=== PATIENT | female | born 1980 | race Caucasian/White ===

== ENCOUNTER 2019-11-07 18:39 | Inpatient (IN) | payer MEDICAID, SELFPAY ==
[~2019-11-07] VITALS: Ht 165.1 cm; Wt 74.1 kg
[2019-11-07] MEDS ORDERED: VENTAER INH (18:50)
[2019-11-07 20:00] LABS: HEMATOCRIT 24.9 % (36.0-47.0); HEMOGLOBIN 8.2 g/dl (12.0-15.5); MEAN CORPUSCULAR HGB CONC 32.9 g/dl (32.0-36.5); PLATELET COUNT, AUTOMATED 129 10^3/uL (150-450); RED BLOOD COUNT 3.41 10^6/uL (4.00-5.40); WHITE BLOOD COUNT 18.9 10^3/uL (4.0-10.0)
[2019-11-07 20:15] LABS: ALBUMIN 1.5 GM/DL (3.2-5.2); ALT/SGPT 30 U/L (12-78); BILIRUBIN,TOTAL 1.3 MG/DL (0.2-1.0); BLOOD UREA NITROGEN 19 MG/DL (7-18); CALCIUM LEVEL 7.5 MG/DL (8.5-10.1); CARBON DIOXIDE LEVEL 27 MEQ/L (21-32); CHLORIDE LEVEL 90 MEQ/L (98-107); CREATININE FOR GFR 0.85 MG/DL (0.55-1.30); GLOMERULAR FILTRATION RATE > 60.0 (>58); GLUCOSE, FASTING 119 MG/DL (70-100); POTASSIUM SERUM 3.1 MEQ/L (3.5-5.1); SODIUM LEVEL 127 MEQ/L (136-145); TOTAL PROTEIN 6.8 GM/DL (6.4-8.2)
[2019-11-07] MEDS ORDERED: IBUP200C28 PO (20:30)
[2019-11-07] MEDS ORDERED: ISOVUE-370 76% 100ML VIAL As Ordered ONE (20:45)
[2019-11-07 20:48] LABS: INR 1.34; PROTHROMBIN TIME 16.3 SECONDS (11.8-14.0)
[2019-11-07 20:49] LABS: PARTIAL THROMBOPLASTIN TIME 43.4 SECONDS (25.0-38.4)
[2019-11-07 20:53] LABS: BILIRUBIN,DIRECT 0.8 MG/DL (0.0-0.2); LIPASE 45 U/L (73-393)
[2019-11-07 20:55] LABS: ATYPICAL LYMPH 5 % (0-5); LYMPHOCYTES 6 % (16-44); METAMYELOCYTES 1 % (0-0); NEUTROPHILS 68 % (28-66)
[2019-11-07 20:56] LABS: ANISOCYTOSIS 1+; MICROCYTOSIS 1+; PLATELET ESTIMATE DECREASED (NORMAL); POIKILOCYTOSIS 1+; POLYCHROMASIA 1+
--- NOTE | 2019-11-07 21:21 | REPVR ---
PROCEDURE INFORMATION: Exam: US Duplex Lower Extremity Veins, Bilateral Exam date and time: 11/07/19 (8:58pm) Age: 39 years old Clinical indication: Bilateral leg swelling TECHNIQUE: Imaging protocol: Real-time duplex ultrasound of the extremities with 2-D scanlon scale, color Doppler flow and spectral waveform analysis with image documentation. Complete examination focused on the bilateral lower extremity veins. COMPARISON: No relevant prior studies available FINDINGS: Right deep veins: Unremarkable. The common femoral, femoral, proximal profunda femoral, popliteal and calf veins are patent without thrombus. Normal Doppler waveforms. Normal compressibility and/or augmentation response. Right superficial veins: Saphenofemoral junction is patent without thrombus. Left deep veins: Unremarkable. The common femoral, femoral, proximal profunda femoral, popliteal and calf veins are patent without thrombus. Normal Doppler waveforms. Normal compressibility and/or augmentation response. Left superficial veins: Saphenofemoral junction is patent without thrombus. Soft tissues: Unremarkable. IMPRESSION: No evidence of deep vein thrombosis. (both legs are examined) Electronically signed by: Laverne Hughes On 11/07/2019 21:21:27 PM
--- NOTE | 2019-11-07 21:53 | REPVR ---
PROCEDURE INFORMATION: Exam: CT Abdomen and Pelvis with Contrast Exam date and time: 11/07/19 (9:19pm) Age: 39 years old Clinical indication: SOB, tachycardia TECHNIQUE: Imaging protocol: Computed tomography of the abdomen and pelvis with intravenous contrast. Radiation optimization: All CT scans at this facility use at least one of these dose optimization techniques: automated exposure control; mA and/or kV adjustment per patient size (includes targeted exams where dose is matched to clinical indication); or iterative reconstruction. Contrast material: Isovue 370 Contrast volume: 100 ml Contrast route: IV COMPARISON: No relevant prior studies available FINDINGS: Lower lung bates: Bibasilar interstitial lung disease. Multiple round parenchymal lesions at each lung base, many cystic/cavitary in nature. Liver: Normal. No solid mass. Gallbladder and bile ducts: Normal. No calcified stones. No ductal dilatation. Pancreas: Normal. No ductal dilatation. Spleen: Splenomegaly. Adrenals: Normal. No mass. Kidneys and ureters: Normal. No hydronephrosis. Stomach and bowel: Unremarkable. No bowel obstruction. No mucosal thickening. Appendix: No evidence of appendicitis. Intraperitoneal space: Unremarkable. No free air. No significant fluid collection. Vasculature: Unremarkable. No abdominal aortic aneurysm. Lymph nodes: Unremarkable. No enlarged lymph nodes. Bladder: Distended urinary bladder. No stones nor mass. Reproductive: Unremarkable as visualized. Bones/joints: Unremarkable. No acute fracture. Soft tissues: Unremarkable. IMPRESSION: Bibasilar interstitial lung disease. Multiple round parenchymal lesions at each lung base, many cystic/cavitary in nature. Diagnostic considerations include: septic emboli; cavitary pneumonia; lung abscesses; cavitary metastatic disease; atypical infection (eg, fungal disease); sarcoidosis. No acute bowel pathology. No hydronephrosis. Splenomegaly. Electronically signed by: Laverne Hughes On 11/07/2019 21:53:19 PM
--- NOTE | 2019-11-07 22:19 | REPVR ---
PROCEDURE INFORMATION: Exam: CT Angiography Chest With Contrast Exam date and time: 11/07/2019 9:19 PM Age: 39 years old Clinical indication: Shortness of breath; Additional info: SOB, tachycardia TECHNIQUE: Imaging protocol: Computed tomographic angiography of the chest with intravenous contrast. 3D rendering: MIP and/or 3D reconstructed images were created by the technologist. Radiation optimization: All CT scans at this facility use at least one of these dose optimization techniques: automated exposure control; mA and/or kV adjustment per patient size (includes targeted exams where dose is matched to clinical indication); or iterative reconstruction. Contrast material: ISOVUE 370; Contrast volume: 100 ml; Contrast route: IV; COMPARISON: No relevant prior studies available. FINDINGS: There is satisfactory opacification of the pulmonary arterial system. There is a near occlusive filling defect within a subsegmental branch of the pulmonary arterial system of the left lower lobe (image number 131). There is a nonocclusive filling defect within a subsegmental branch of the pulmonary arterial system of the right lower lobe. Findings are consistent with bilateral pulmonary embolic disease. Clot burden is considered small. Innumerable thick-walled cavitary lesions are identified throughout all lobes of the lungs. The largest in the right lower lobe measures up to 20 x 17 mm. The largest in the left lower lobe measures up to 22 by 16 mm. Largest confluent area of airspace consolidation with cavitary component in the right upper lobe measures up to 28 x 23 mm. Largest confluent area of airspace consolidation with cavitary component in the left upper lobe measures up to 17 x 14 mm. Findings are likely consistent with infectious etiology, including septic emboli. No large pleural effusion. Mediastinal structures are grossly normal. No thoracic lymphadenopathy. IMPRESSION: Near occlusive pulmonary embolic disease within subsegmental branches of the left lower lobe. Nonocclusive pulmonary embolic disease within subsegmental branches of the right lower lobe. Findings are consistent with bilateral pulmonary embolic disease. Clot burden is considered small. Extensive areas of airspace consolidation with cavitary lesions within all lobes of the lungs. Findings are likely consistent with inflammatory process including septic emboli or necrotizing pneumonia. Follow-up to resolution is recommended. If this fails to resolve after medical therapy, bronchoscopy is recommended.. Electronically signed by: Pj Vergara On 11/07/2019 22:18:29 PM
[2019-11-07] MEDS ORDERED: PIPERACILLIN/TAZOBACTAM SOD 3.375 GM in D5W MINI-BAG PLUS 50 ML IV ONE (22:45)
[2019-11-07] MEDS ORDERED: POTASSIUM CHLORIDE 10 MEQ SR TABLET PO ONE (23:00)
--- NOTE | 2019-11-07 23:11 | HPEPDOC ---
[facility] Medical History & Physical Date of Admission November 07, 2019 Date of Service: November 07, 2019 Attending Physician: RAMU WAGONER MD History and Physical CHIEF COMPLAINT: Shortness of breath and generalized weakness HISTORY OF PRESENT ILLNESS: Stephanie is a 39-year-old female with PMHx of asthma who was brought to the ED by her father and sister with the chief complaints of shortness of breath and worsening generalized pain and weakness. Approximately five and a half weeks ago she fell about 10 feet from a ladder while outdoors working on property around her home, making initial contact with the ground via her feet and legs. Soon thereafter, she began to experience pruritus of her legs. Over the last 3-4 weeks, she's experienced progressively worsening shortness of breath, systemic pains and weakness. Her symptoms have worsened to the point that she was "overloading on Motrin and Tylenol" at home. At this time, she specifically endorses decreased supervisor payroll strength, a decreased ability to ambulate, and diffuse pain that is most prominent in her legs and neck. She also reports also a three day period within this last month of symptoms where she unintentionally "gained 50 pounds in three days." Her activity level has significantly decreased over the past few days to the point that she is no longer ambulating under her own power and is instead scooching around on her hands and rear end. Even when she was ambulating, she had balance and stability issues with no falls. She says she simply "let [herself] go" over the past month. In the ED, she was found to be septic (leukocytosis and bandemia, tachycardic, and febrile) with initial lactic acid 2.4 and CRP 27; also with hypokalemia (sK 3.1), corrected sNa 127, elevated AST 81 and Alk phos 231, direct hyperbilirubi nemia, microcytic anemia, and protein gap (tPro 6.8, Albumin 1.5). Chest CTA showed bilateral pulmonary embolic disease with a small clot burden; as well as consolidation with cavitary lesions of all lung lobes thought to be consistent with inflammatory process, potentially septic emboli or necrotizing pneumonia. Two initial blood cultures were drawn, and she received 1 dose of Zosyn and 40 mEq of KCl. She was subsequently admitted under the care of the hospitalist service with scheduled Zosyn and vancomycin, heparin gtt, and IVF ordered. While still in the ED, her peripheral IV became dislodged and a peripheral was unable to be obtained by multiple staff. Dr. Amezcua of general surgery was called in to place a central line so as she could continue with her IV ABx and heparin gtt. She then was ultimately switched over to ICU status. She verbally confirms her CODE STATUS is full code. PAST MEDICAL HISTORY: Asthma PAST SURGICAL HISTORY: Bilateral bunionectomies SOCIAL HISTORY: Lives with her 15-year-old daughter in [place]. 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 She currently smokes cigarettes and has done so for the past 11 years, averaging one pack per day. She denies current or former alcohol use. She also denies current or former illicit drug use including IV drugs. FAMILY HISTORY: Mother: Hypertension Children: One child, a 15-year-old daughter who is healthy. ALLERGIES: Please see below. REVIEW OF SYSTEMS: CONSTITUTIONAL: Endorses "50 pound weight loss"in the last few weeks that occurred over "3 days." Endorses fever and chills. HEENT: Denies eye pain or visual disturbances, ear pain or auditory disturbances, rhinorrhea, congestion, dysphagia, odynophagia CARDIOVASCULAR: Denies chest pain, chest pressure, or palpitations RESPIRATORY: Endorses progressively worsening shortness of breath for the past few weeks with admitted increased work of breathing. Denies cough or pleuritic chest pain GASTROINTESTINAL: Denies abdominal pain, nausea, or vomiting GENITOURINARY: States she is no longer menstruating and has not had a period since she was 33 years old - - denies currently taking OCPs or previous hysterec edel. Denies dysuria or hematuria SKIN: Endorses bilateral lower extremity pruritus with worsening overall condition and breakdown with wounds MUSCULOSKELETAL: Endorses progressively worsening pain that is most acute in her legs and neck NEUROLOGICAL: Endorses bilateral lower extremity weakness and numbness to the point that she has been on unable to ambulate the past few days HEMATOLOGIC/LYMPHATIC: Endorses swelling of bilateral lower extremities with a past month HOME MEDICATIONS: Please see below. PHYSICAL EXAMINATION: VITAL SIGNS: Temperature 102.7, pulse 1:30, respiratory rate 18, blood pressure 101/56, pulse oximetry 99% on room air. GENERAL APPEARANCE: female in moderate distress with significant lower extremity swelling and wounds. Tearful. Alert and oriented 3. HEENT: Cephalic, atraumatic. PERRLA. Anicteric, noninjected sclera. [place] and dry mucous membranes with no pharyngeal erythema or exudate. No cervical lymphadenopathy appreciated. CARDIOVASCULAR: Tachycardic with regular rhythm. Pansystolic murmur auscultated throughout the precordium with radiation to carotids. No rubs or gallops appreciated. 2+ radial pulses. LUNGS: Diffuse moderate rhoncherous breath sounds bilaterally with mild inspiratory crackles in the bases bilaterally. Symmetric chest expansion. Speaking full sentences. Breathing room air. ABDOMEN: Tatoo over abdomen encircling umbilicus. Soft, nontender, nondistended with no guarding or rigidity. Normoactive bowel sounds present all 4 quadrants. MUSCULOSKELETAL: 5/5 muscle strength b/l LEs EXTREMITIES: Bilateral lower extremity and pedal pitting edema with extensive erythema that is more apparent distally, and what appears to be petechiae proximally over the knees and thighs. There is scaly chronic skin changes and breakdown bilaterally with an approximately 6-7cm diameter ulcer over the right lateral lower leg and an approximately 5-6cm diameter ulcer over the left lateral leg. There is also about a 5cm diameter area of skin overlying the left lateral thigh that it appears to be on its way to ulcerating with surrounding induration. There is also bilateral hand swelling with erythema. NEUROLOGICAL: Awake, alert and oriented 3. No focal neurological deficits appreciated. Non-dysarthric speech. Responded appropriate to questions and commands. PSYCHIATRIC: Anxious mood, tearful, and embarrassed at times. Affect appears ap propriate. LABORATORY DATA: Please see below. IMAGING: Duplex bilateral lower extremity venous ultrasound, 11/07/19: Impression no evidence of deep vein thrombosis (both legs are examined). *CT angiography chest with contrast, 11/07/19: Impression Near occlusive pulmonary embolic disease within subsegmental branches of the left lower lobe. Nonocclusive pulmonary embolic disease within subsegmental branches of the right lower lobe. Findings are consistent with bilateral pulmonary embolic disease. Clot burden is considered small. Extensive areas of airspace consolidation with cavitary lesions within all lobes of the lungs. Findings are likely consistent with inflammatory process including septic emboli or necrotizing pneumonia. Follow-up to resolution is recommended. If this fails to resolve after medical therapy, bronchoscopy is recommended. CT abdomen and pelvis with contrast, 11/07/19: Impression Bibasilar interstitial lung disease. Multiple round parenchymal lesions at each lung base, many cystic/cavitary in nature. Diagnostic considerations include: septic emboli; cavitary pneumonia; lung abscesses; cavitary metastatic disease; atypical infection (eg, fungal disease); sarcoidosis. No acute bowel pathology. No hydronephrosis. Splenomegaly. Duplex bilateral upper extremity venous ultrasound, 11/07/19: Impression no evidence of deep vein thrombosis in the upper extremities bilaterally. MICROBIOLOGY: Please see below. ASSESSMENT & PLAN: This is a 39-year-old female with no significant past medical history other than asthma who presented to the emergency department with sepsis (fever, tachycardic, inc WBC w/ bandemia) with impressive chest CTA showing bilateral pulmonary embolic disease and consolidations with cavitary lesions in all lung lobes. #Sepsis likely 2/2 significant septic emboli burden -WBC 18 w/ bandemia + tachycardia + fever, with inc CRP 27 and initial lactic acid 2.4, f/u of 2.2 -likely source thought to be initially through LE skin wounds causing bacteremia and systemic septic emboli -NEWS2 Score = 4 points; associated with low/medium risk for critical care intervention with monitoring q1h -Chest CTA showed b/l pulmonary embolic disease with a small clot burden and airspace consolidation with cavitary lesions in all lung lobes -Two initial BCx pending -Heparin gtt running for pulmonary emboli despite small clot burden; IV ABx, Zosyn and Vanc, running w/ Vanc for likely bacteremia introduced via skin wounds; IVF running -toxicology screen ordered in setting of profound septic emboli burden -TTE ordered to assess for possible endocarditis -General surgery (Dr. Amezcua) consulted to assess b/l LE wounds - - appreciate their input and recommendations -Infectious disease (Dr. Maria Del Carmen Dorantes) consulted in setting of significant septic emboli burden with presumed bacteremia - - appreciate their input and recommendations #Microcytic normochromic anemia -Hgb 8.2, MCV 73, MCHC 32.9 -no previous hospital records to Hgb baseline -Fe studies ordered to assess for deficiency, ACD, etc. -f/u CBC #Electrolyte abnormalities -Hypokalemia: initial sK 3.1; received 40mEq KCl in ED -Hyponatremia: initial sNa 127 with calculated sNa 127 (accounting for sGlu 119); sOsm ordered to assess if this is pseudohyponatremia -False hypocalcemia: sCa 7.5 with corrected sCa 9.7 (accounting for sAlbumin 1.5) -f/u metabolic panels #Protein gap -sAlbumin decreased at 1.5 with nl tPro 6.8 -Gamma Gap calculation 5.3 = elevated; potentially elevated 2/2 viral infection(s), blood cell dyscrasias (i.e. multiple myeloma, monoclonal gammopathy), or acute HIV infections -f/u metabolic panels #History of Asthma, unspecified type -c/o increased sob over the past month -home prn albuterol rescue inhaler continued #DVT prophylaxis: on heparin gtt Disposition: Ultimately admitted to ICU with greater than two midnight stays predicted; pending specialists evaluations as well. Vital Signs Vital Signs Date Time Temp Pulse Resp B/P (MAP) Pulse Ox O2 Delivery O2 Flow Rate FiO2 11/07/19 21:09 108 97 11/07/19 21:00 142/66 (91) 11/07/19 20:24 18 Room Air 11/07/19 19:38 100.5 Laboratory Data Labs 24H Laboratory Tests 2 11/07/19 19:32: Neutrophils (%) (Auto) , Nucleated Red Blood Cells % (auto) 0.0, Neutrophils 68H, Band Neutrophils 20H, Lymphocytes (Manual) 6L, Metamyelocytes 1H, Atypical Lymphocytes 5, Polychromasia 1+, Poikilocytosis 1+, Anisocytosis 1+, Microcytosis 1+, Platelet Estimate DECREASED, Anion Gap 10, Glomerular Filtration Rate > 60.0, Calcium Level 7.5L, Total Bilirubin 1.3H, Direct Bilirubin 0.8H, Aspartate Amino Transf (AST/SGOT) 81H, Alanine Aminotransferase (ALT/SGPT) 30, Alkaline Phosphatase 231H, C-Reactive Protein, Quantitative 27.20H, Total Protein 6.8, Albumin 1.5L, Albumin/Globulin Ratio 0.28L, Lipase 45L, Coronavirus (COVID-19)(PCR) NEGATIVE 11/07/19 19:36: Prothrombin Time 16.3H, Prothromb Time International Ratio 1.34, Activated Partial Thromboplast Time 43.4H, Lactic Acid Level 2.4*H CBC/BMP Laboratory Tests 11/07/19 19:32 Microbiology Microbiology 11/07/19 Blood Culture, Received Pending 11/07/19 Blood Culture, Received Pending Home Medications Scheduled PRN Albuterol Sulfate (Ventolin Hfa) 18 Gm Hfa.aer.ad, 2 PUFF INH Q6H PRN for SHORTNESS OF BREATH Ibuprofen (Ibuprofen) 200 Mg Capsule, 600 MG PO QID PRN for PAIN Allergies Coded Allergies: No Known Allergies (Unverified , 11/07/19) GME ATTESTATION My faculty preceptor for this patient encounter was physically present during the encounter and was fully available. All aspects of the patient interview, examination, medical decision making process, and medical care plan development were reviewed and approved by the faculty preceptor. The faculty preceptor is aware and concurs with the plan as stated in the body of this note and will attest to such by his/her cosignature. ATTENDING NOTE I independently examined and assessed the patient and discussed the plan and agree with the resident's documentation above. Briefly, Ms. Vieyra is a 39yo W who is admitted with severe sepsis likely 2/2 soft tissue infection that occured after injury after falling from a tree with involvement of a chainsaw with cuts that were not tended. Her exam findings and workup thus far shows likely bacteremia (pending cultures) with evidence of pulm septic emboli, loud pansystolic murmur heart throughout precordium with likely endorcaditis and evidence of PEs. At this time, we have pancultured her and started her on empiric vanc/zosyn and heparin gtt while awaiting cultures, TTE nad pending ID consult. A-FIB/CHADSVASC A-FIB History Current/History of A-Fib/PAF?: No Current PO Anticoag Therapy: No LORI CHAVARRIA D.O. November 07, 2019 23:11 RAMU WAGONER MD November 08, 2019 19:32
--- NOTE | 2019-11-07 23:12 | REPVR ---
PROCEDURE INFORMATION: Exam: US Duplex Upper Extremity Veins Exam date and time: 11/07/2019 11:02 PM Age: 39 years old Clinical indication: Swelling (edema) of limb; Upper extremity, bilateral; Additional info: Upper extremity swelling TECHNIQUE: Imaging protocol: Real-time Duplex ultrasound of the Upper Extremities with 2-D scanlon scale, color Doppler flow and spectral waveform analysis with image documentation. Complete exam focused on the bilateral upper extremity veins. COMPARISON: No relevant prior studies available. FINDINGS: Right deep veins: Unremarkable. Axillary and brachial veins are patent throughout without thrombus. Normal Doppler waveforms. Normal compressibility and/or augmentation response. Visualized internal jugular and subclavian veins are patent. Right superficial veins: Limited visualization of the cephalic and basilic veins with no definite evidence of thrombus. Left deep veins: Unremarkable. Axillary and brachial veins are patent throughout without thrombus. Normal Doppler waveforms. Normal compressibility and/or augmentation response. Visualized internal jugular and subclavian veins are patent. Left superficial veins: Limited visualization of the cephalic and basilic veins with no definite evidence of thrombus. Soft tissues: Unremarkable. IMPRESSION: No evidence of deep vein thrombosis in the upper extremities bilaterally. Electronically signed by: Pj Vergara On 11/07/2019 23:11:24 PM
[2019-11-07] MEDS ORDERED: ACETAMINOPHEN TAB 650MG DOSE (2X325MG) PO ONE (23:30)
[2019-11-08] VITALS (29 sets, daily range): BP systolic 86–127; BP diastolic 51–68
[2019-11-08] MEDS ORDERED: HEPARIN SOD (PORCINE) 5000UNITS/ML VIAL (J1644 PER 1000UNITS) IV ONE
[2019-11-08] MEDS ORDERED: ALBUTEROL 90 MCG/ACT 8GM HFA INHALER INH PRN (00:45)
[2019-11-08] MEDS ORDERED: VANCOMYCIN HCL 750 MG, VIAL MATE ADAPTER 1 EACH in D5W 250 ML IV ONE ×2 (03:00→04:00)
--- NOTE | 2019-11-08 04:14 | PHACANCOPD ---
PHARMACY VANCOMYCIN DOSING Pt Demographics Demographics Patient Age:39 , Weight:74.200 , Gender: female Adjusted Body Weight Date: 11/08/19, Adjusted Body Weight: [63.9] Kg Events Past 24 Hours Events Past 24 Hours: YES: Fever Vancomycin Vancomycin indication: febrile neutropenia-empiric tx Vancomycin Target Ranges: 15-20 mcg/ml Vancomycin Load Y/N: Yes Load Dose Date Time Vancomycin Load Dose: 1.5gm Date: 11/07 Time: 0400 Vancomycin Dose Date: 11/08/19. Current Vancomycin Dose: [1gm q12h] Intermittent Dosing?: No Labs Micro Microbiology 11/07/19 Blood Culture, Received Pending 11/07/19 Blood Culture, Received Pending Creatinine Clearance Date:11/08/19. Creatinine Clearance: [87.8].calculatedf Assessment and Plan Maintaining Current Dose?: Yes Reason for dose change: No Dose Change Pharmacist Note Pharmacist Note Date: 11/08/19. Pharmacist note:[id number] admitted for empiric tx of febrile neutropenia. NKDA,ht:65",wt:74.2kg(abw=63.9kg)SCR=0.85,Calculated CRCL=87.8.MRSA PCR screen pending,1.5 GM Vancomycin LD ordered for today@3-4:00, then will begin continuing regimen of 1 gm IV [id number]@12 noon. First trough is scheduled for 11/08@1100(prior to the 4th dose).Patient is also receiving Pip/Tazo 3.375 G M IV [id number]. Will continue to follow [facility] November 08, 2019 04:14
[2019-11-08] MEDS ORDERED: LIDOCAINE 1% MDV 20ML VIAL As Ordered ONE (04:33)
[2019-11-08] MEDS ORDERED: PIPERACILLIN/TAZOBACTAM SOD 3.375 GM in D5W MINI-BAG PLUS 50 ML IV SCH (05:00)
[2019-11-08] MEDS: NS 1,000 ML IV SCH ×3 (05:06→20:30)
[2019-11-08] MEDS: HEPARIN DRIP 25,000 UNITS in IV 1 EA IV SCH (05:11)
[2019-11-08 05:58] LABS: HEMATOCRIT 23.7 % (36.0-47.0); HEMOGLOBIN 7.6 g/dl (12.0-15.5); MEAN CORPUSCULAR HEMOGLOBIN 23.5 pg (27.0-33.0); MEAN CORPUSCULAR HGB CONC 32.1 g/dl (32.0-36.5); MEAN CORPUSCULAR VOLUME 73.4 fl (80.0-96.0); PLATELET COUNT, AUTOMATED 110 10^3/uL (150-450); RED BLOOD COUNT 3.23 10^6/uL (4.00-5.40); WHITE BLOOD COUNT 16.4 10^3/uL (4.0-10.0)
[2019-11-08 06:26] LABS: ALBUMIN 1.3 GM/DL (3.2-5.2); ALT/SGPT 24 U/L (12-78); BILIRUBIN,TOTAL 1.4 MG/DL (0.2-1.0); BLOOD UREA NITROGEN 14 MG/DL (7-18); CALCIUM LEVEL 7.5 MG/DL (8.5-10.1); CARBON DIOXIDE LEVEL 31 MEQ/L (21-32); CHLORIDE LEVEL 95 MEQ/L (98-107); CREATININE FOR GFR 0.67 MG/DL (0.55-1.30); FERRITIN 453 NG/ML (8-252); GLOMERULAR FILTRATION RATE > 60.0 (>58); GLUCOSE, FASTING 132 MG/DL (70-100); IRON (FE) 18 UG/DL (50-170); PERCENT SATURATION 9.4 % (13.2-45.0); POTASSIUM SERUM 2.8 MEQ/L (3.5-5.1); SODIUM LEVEL 132 MEQ/L (136-145); TOTAL IRON BINDING CAPACITY 191 UG/DL (250-450); TOTAL PROTEIN 6.3 GM/DL (6.4-8.2)
[2019-11-08] MEDS: KCL 20MEQ IN 100ML SWI (KRUN) 20 MEQ in IV 1 EA IV SCH ×8 (06:30→21:36)
[2019-11-08] MEDS: PIPERACILLIN/TAZOBACTAM SOD 3.375 GM in D5W MINI-BAG PLUS 50 ML IV SCH ×2 (07:28→14:18)
[2019-11-08] MEDS: ACETAMINOPHEN TAB 650MG DOSE (2X325MG) PO PRN ×2 (07:37→21:36)
--- NOTE | 2019-11-08 08:12 | REP ---
PORTABLE CHEST X-RAY: Single view. HISTORY: Status post line placement. Comparison is made with chest CT study done earlier. FINDINGS: A right internal jugular central venous line is seen in place with it is tip in the expected location of the superior vena cava. Heart is not enlarged. Multiple bilateral pulmonary nodular opacities are seen as observed on the current CT study of the chest. There is no evidence of pneumothorax or hydrothorax. IMPRESSION: Right IJ line in good position. No pneumothorax seen. Electronically Signed by Marc Llamas MD 11/08/2019 08:43 A
--- NOTE | 2019-11-08 08:35 | RO ---
DATE OF PROCEDURE: 11/07/2019 PREOPERATIVE DIAGNOSIS: IV access needed for anticoagulation and fluids (patient septic in intensive care unit). POSTOPERATIVE DIAGNOSIS: IV access needed for anticoagulation and fluids (patient septic in intensive care unit). PROCEDURE: Central line placement. SURGEON: Dr. Efe Amezcua ASSOCIATE PROFESSOR COMPUTER SCIENCE: ANESTHESIA: Local lidocaine. BRIEF PROCEDURE SUMMARY: The patient was brought to the intensive care unit. She was prepped and draped in the usual sterile fashion for a left subclavian. After several sticks, I was not able to obtain good flashback from the subclavian vein. Prior to this, I had checked on the right internal jugular (IJ) area and it was very distended and thus I felt that she was possibly not as fluid under resuscitated as previously thought. Thus, I went to the left subclavian area. After a few sticks though, and not being successful at this, a right IJ access was obtained without difficulty. Finder needle was placed into the vein and the wire was threaded without difficulty. The central line was sutured in at 17 cm and all ports were aspirated and flushed without difficulty. A postoperative chest x-ray revealed the central line in good position and no evidence of pneumothorax. The patient continued with her ICU care and dressing changes, etc.
[2019-11-08 10:23] LABS: BLOOD UREA NITROGEN 14 MG/DL (7-18); CALCIUM LEVEL 7.4 MG/DL (8.5-10.1); CARBON DIOXIDE LEVEL 33 MEQ/L (21-32); CHLORIDE LEVEL 96 MEQ/L (98-107); CREATININE FOR GFR 0.63 MG/DL (0.55-1.30); GLOMERULAR FILTRATION RATE > 60.0 (>58); GLUCOSE, FASTING 109 MG/DL (70-100); POTASSIUM SERUM 3.5 MEQ/L (3.5-5.1); SODIUM LEVEL 131 MEQ/L (136-145)
--- NOTE | 2019-11-08 10:59 | IPNPDOC ---
Text Note Date of Service The patient was seen on 11/08/19. NOTE Subjective: Patient continues to have generalized weakness, cough. Her fever in the morning resolved. Patient denied chest pain, palpitations, diarrhea or dysuria Objective: VITAL SIGNS: Please see below. GENERAL: In moderate distress, tearful HEENT: NCAT, anicteric sclera, MARGARITA NECK: supple, no JVD CARDIOVASCULAR EXAMINATION: NS1S2, regular rate/rhythm RESPIRATORY EXAMINATION: Diminished lung sounds, bilateral rhonchi at the bases ABDOMINAL EXAMINATION: Distended, nontender EXTREMITIES: Erythematous skin over both feet, multiple petechia of lower extremities, +1 pitting edema of lower extremities with scaly chronic skin changes, extensive ulceration around 5- 6 cm both distal legs. Erythema of both hands NEUROLOGICAL EXAMINATION: AAO x 3, no motor/sensory deficits Patient is 39 years old female with past medical history of asthma presented to the hospital with sepsis. Patient was found to have bilateral pulmonary emboli, multifocal pneumonia with cavitary lesions. Blood culture came back positive with gram-positive cocci in clusters on 11/08/19. Sepsis Most likely secondary to skin infection which spread hematogenously to the lungs 2 sets of Blood culture positive for gram-positive cocci in clusters 11/08/19 Continue vancomycin and Zosyn Continue IV fluid Repeat blood culture There is concern for endocarditis given gram-positive cocci bacteremia. We will proceed with TTE, I will check sedimentation rate and rheumatoid factor Also there is concern for DIC given multiple petechia, anemia and declining bloodless count with prolonged PT, PTT, INR Check DIC panel Appreciate/agree with ID consult Bilateral PE Most likely due to sepsis superimposed with prolonged immobilization No history of blood clots before Continue heparin drip Bilateral pneumonia Most likely patient developed septic emboli secondary to bilateral legs cellulitis and ulcers CTA showed extensive areas of airspace consolidation with cavitary lesions within all lobes of the lungs. Findings are likely consistent with inflammatory process including septic emboli or necrotizing pneumonia. Continue broad-spectrum antibiotics Incentive spirometry Skin rash/petechia Most likely secondary to sepsis due to gram-positive cocci in clusters, most likely staph aureus septicemia Will check DIC panel Differential diagnosis also includes TEN, SJS, TSS. Continue monitoring CBC Hypokalemia Replaced BMP every 4 hours VS,Fishbone, I+O VS, Fishbone, I+O Laboratory Tests 5/13/20 19:32 11/08/19 05:40 Vital Signs Date Time Temp Pulse Resp B/P (MAP) Pulse Ox O2 Delivery O2 Flow Rate FiO2 11/08/19 08:00 98.3 95 22 92/52 (65) 94 Room Air I&O- Last 24 Hours up to 6 AM 11/08/19 05:59 Intake Total 0 ml Output Total 0 ml Balance 0 ml JETT KENT DO November 08, 2019 10:58
[2019-11-08] MEDS ORDERED: SODIUM CHLORIDE 0.9% 1000ML IV ONE (11:15)
[2019-11-08] MEDS: VANCOMYCIN HCL 1,000 MG, VIAL MATE ADAPTER 1 EACH in D5W 250 ML IV SCH (11:49)
[2019-11-08 11:51] LABS: HEMATOCRIT 23.7 % (36.0-47.0); HEMOGLOBIN 7.6 g/dl (12.0-15.5); MEAN CORPUSCULAR HEMOGLOBIN 23.8 pg (27.0-33.0); MEAN CORPUSCULAR HGB CONC 32.1 g/dl (32.0-36.5); MEAN CORPUSCULAR VOLUME 74.1 fl (80.0-96.0); WHITE BLOOD COUNT 13.8 10^3/uL (4.0-10.0)
[2019-11-08 12:02] LABS: INR 1.36; PROTHROMBIN TIME 16.5 SECONDS (11.8-14.0)
[2019-11-08 12:03] LABS: FIBRINOGEN 539 MG/DL (221-452); PARTIAL THROMBOPLASTIN TIME 46.6 SECONDS (25.0-38.4)
[2019-11-08 12:07] LABS: PLATELET COUNT, AUTOMATED 94 10^3/uL (150-450)
[2019-11-08] MEDS: HEPARIN SOD (PORCINE) 5000UNITS/ML VIAL (J1644 PER 1000UNITS) IV PRN ×2 (12:18→18:47)
[2019-11-08 12:38] LABS: D-DIMER QUANT > 4000 ng/ml (<500)
[2019-11-08 12:41] LABS: ANISOCYTOSIS 1+; LYMPHOCYTES 5 % (16-44); MICROCYTOSIS 2+; MONOCYTES 8 % (0-5); NEUTROPHILS 86 % (28-66); PLATELET ESTIMATE DECREASED (NORMAL)
[2019-11-08] MEDS ORDERED: SODIUM CHLORIDE 0.9% INJ 10 ML SYR IV PRN (14:30)
[2019-11-08 14:50] LABS: BLOOD UREA NITROGEN 12 MG/DL (7-18); CALCIUM LEVEL 7.4 MG/DL (8.5-10.1); CARBON DIOXIDE LEVEL 31 MEQ/L (21-32); CHLORIDE LEVEL 98 MEQ/L (98-107); CREATININE FOR GFR 0.58 MG/DL (0.55-1.30); GLOMERULAR FILTRATION RATE > 60.0 (>58); GLUCOSE, FASTING 114 MG/DL (70-100); POTASSIUM SERUM 3.4 MEQ/L (3.5-5.1); SODIUM LEVEL 133 MEQ/L (136-145)
--- NOTE | 2019-11-08 17:06 | CR ---
DATE: 11/08/2019 Patient is a 39-year-old white female who presents to the emergency room with shortness of breath and essentially was diagnosed with septic emboli and deep venous thromboses (DVTs) this secondary to bilateral traumatic injuries to the lower extremities with ulcers that had developed. In any case, she presents with the sepsis, leukocytosis, tachycardia, febrile with lactic acidosis. Past medical history is history for asthma, history of anxiety, history of bilateral bunionectomies. Physical exam reveals a 39-year-old who looks stated age. HEENT is unremarkable. Neck: Supple without adenopathy. Lungs are clear although decreased bilaterally. Heart is regular, tachycardiac. Abdomen is softly distended, nontender. Extremities reveal these petechial rashes throughout both distally in the hands. She has significant edema with 2+ pitting edema. She has 2-3+ pitting edema of her lower extremities with some dry ulcers of bilateral lower extremities that are punched out lesions, evidence of some venous stasis changes of bilateral lower extremities. A CT angio of the chest showed pulmonary emboli concerning for possible septic emboli or possible septic emboli. There are multiple lesions within all lobes of the lungs. IMPRESSION/PLAN: Patient has evidence of cellulitis of the lower extremities bilaterally with edema, some necrotic ulcers, although no true necrotizing fasciitis appreciated. These are mostly dry and should improve with some local dressing changes, and I anticipate just simple wet-to-dry should help debride back these lesions relatively quickly. With antibiotic treatment I anticipate cellulitis should improve. The edema, cellulitis in the upper hands etc. should also improve with heparinization and antibiotic treatment as well. Otherwise, additional recommendations can be obtained from teleconference with the wound clinic. Additional treatment with things such as Santyl, etc. may not be unreasonable. Pulse lavage is also a reasonable option, but given that it is reasonable to start with wet-to-dry twice a day normal saline and see how she does over the next 24 hours. If this really does not debride as well, then being more aggressive with the treatment is reasonable.
[2019-11-08 18:21] LABS: HEMATOCRIT 23.9 % (36.0-47.0); HEMOGLOBIN 7.9 g/dl (12.0-15.5); MEAN CORPUSCULAR HEMOGLOBIN 24.5 pg (27.0-33.0); MEAN CORPUSCULAR HGB CONC 33.1 g/dl (32.0-36.5); PLATELET COUNT, AUTOMATED 117 10^3/uL (150-450); RED BLOOD COUNT 3.23 10^6/uL (4.00-5.40); WHITE BLOOD COUNT 16.1 10^3/uL (4.0-10.0)
[2019-11-08] MEDS: CLINDAMYCIN 900 MG in IV 1 EA IV SCH (18:27)
[2019-11-08 18:40] LABS: BLOOD UREA NITROGEN 12 MG/DL (7-18); CARBON DIOXIDE LEVEL 26 MEQ/L (21-32); CHLORIDE LEVEL 97 MEQ/L (98-107); CREATININE FOR GFR 0.62 MG/DL (0.55-1.30); GLOMERULAR FILTRATION RATE > 60.0 (>58); GLUCOSE, FASTING 143 MG/DL (70-100); SODIUM LEVEL 129 MEQ/L (136-145)
[2019-11-08 18:48] LABS: ATYPICAL LYMPH 1 % (0-5); LYMPHOCYTES 11 % (16-44); MONOCYTES 1 % (0-5); MYELOCYTES 2 % (0-0); NEUTROPHILS 66 % (28-66)
[2019-11-08 18:49] LABS: ANISOCYTOSIS 1+; PLATELET ESTIMATE NORMAL (NORMAL)
[2019-11-08 18:50] LABS: MICROCYTOSIS 1+; POLYCHROMASIA 1+; TEAR DROP CELLS 1+
[2019-11-08 18:52] LABS: ERYTHROCYTE SEDIMENTATION RATE 93 mm/hr (0-20)
--- NOTE | 2019-11-08 18:55 | CR.PDOC ---
General Date of Consultation: November 08, 2019 Consultation HPI: Patient is a 39-year-old white female who presented to the Emergency Department with dyspnea and was diagnosed with septic emboli presumed to be secondary to bilateral lower extremity wound in various stages of healing. She was noted to have sepsis, leukocytosis, tachycardia, and a fever. Blood culture showed gram + cocci in clusters and a large tricuspid vegatation was elucidated upon imaging. Dermatology was consulted due to lower extremity wounds and swelling and non-blanching erythema on the hands and feet. PMHx: asthma, history of anxiety, history of bilateral bunionectomies. Exam: HEENT: NC/AT Neck: no JVD appreciated RESP: labored breathing noted SKIN: non-blanching erythema and petechiae noted on the hands and feet with edema and some areas of confluent erythema, chronic stasis changes of the lower extremities appreciated. Lower leg with bilateral wounds in various stages of healing with a large wound on the right lower leg and left lower leg. No overlying gunmetal gonzalez appearance or undermined edging appreciated. Healed wound noted demonstrating healing pattern c/w additional dermal wound. No sporotrichoid LAD given history of falling from tree. NAILS: distal splinter hemorrhages just proximal to the hyponychium IMPRESSION/PLAN: #Ulcers, lower extremity Potentially trauma complicated by edema and poor nutritional status but various stages of healing does raise concern for pyoderma gangrenosum. Much lower concern, but will perform punch bx and assess for neutrophilic dermatosis in the absence of bacteria. Agree with plan for General Surgery for wet to dry dressings to debride wounds and assist with healing. Leg elevation is likely showing us an improved edema pictures compared to baseline. Will perform punch bx and wound culture at this time. #Vasculitis Likely secondary to sepsis causing increased permeability and inflammation within the capillaries. Biopsy performed to r/o septic emboli in setting of splinter hemorrhages and large tricuspid vegetation noted. Will follow up punch bx and wound culture. Dr. Stacey Rios Staff Card [facility] Vital Signs/I&O Vital Signs Date Time Temp Pulse Resp B/P (MAP) Pulse Ox O2 Delivery O2 Flow Rate FiO2 11/08/19 14:00 99 26 125/65 (85) 97 Room Air 11/08/19 12:00 98.0 I&O- Last 24 Hours up to 6 AM 11/08/19 06:00 Intake Total 385 ml Output Total 0 ml Balance 385 ml Laboratory Data Labs 24H Laboratory Tests 2 11/07/19 19:32: Neutrophils (%) (Auto) , Nucleated Red Blood Cells % (auto) 0.0, Neutrophils 68H, Band Neutrophils 20H, Lymphocytes (Manual) 6L, Metamyelocytes 1H, Atypical Lymphocytes 5, Polychromasia 1+, Poikilocytosis 1+, Anisocytosis 1+, Microcytosis 1+, Platelet Estimate DECREASED, Anion Gap 10, Glomerular Filtration Rate > 60.0, Calcium Level 7.5L, Total Bilirubin 1.3H, Direct Bi lirubin 0.8H, Aspartate Amino Transf (AST/SGOT) 81H, Alanine Aminotransferase (ALT/SGPT) 30, Alkaline Phosphatase 231H, C-Reactive Protein, Quantitative 27.20H, Total Protein 6.8, Albumin 1.5L, Albumin/Globulin Ratio 0.28L, Lipase 45L, Coronavirus (COVID-19)(PCR) NEGATIVE 11/07/19 19:36: Prothrombin Time 16.3H, Prothromb Time International Ratio 1.34, Activated Partial Thromboplast Time 43.4H, Lactic Acid Level 2.4*H 11/08/19 00:18: Activated Partial Thromboplast Time 43.3H 11/08/19 00:42: Lactic Acid Followup at 4 Hours 2.2*H 11/08/19 03:45: Methicillin-Resist S.aureus DNA PCR DETECTEDA 11/08/19 05:40: Nucleated Red Blood Cells % (auto) 0.0, Anion Gap 6L, Glomerular Filtration Rate > 60.0, Osmolality 272L, Lactic Acid Level 1.5, Calcium Level 7.5L, Magnesium Level 2.0, Iron Level 18L, Total Iron Binding Capacity 191L, Transferrin % Saturation 9.4L, Ferritin 453H, Total Bilirubin 1.4H, Aspartate Amino Transf (AST/SGOT) 67H, Alanine Aminotransferase (ALT/SGPT) 24, Alkaline Phosphatase 193H, Total Protein 6.3L, Albumin 1.3L, Albumin/Globulin Ratio 0.26L, Procalcitonin 1.47 11/08/19 09:40: Anion Gap 2L, Glomerular Filtration Rate > 60.0, Calcium Level 7.4L 11/08/19 11:39: Nucleated Red Blood Cells % (auto) 0.0, Neutrophils (%) (Auto) , Neutrophils 86H, Band Neutrophils 1, Lymphocytes (Manual) 5L, Monocytes (Manual) 8H, Anisocytosis 1+, Microcytosis 2+, Platelet Estimate DECREASED, Immature Platelet Fraction 4.7, Prothrombin Time 16.5H, Prothromb Time International Ratio 1.36, Activated Partial Thromboplast Time 46.6H, Fibrinogen 539H, D-Dimer, Quantitative > 4000H, Rheumatoid Factor < 10.0 11/08/19 14:12: Anion Gap 4L, Glomerular Filtration Rate > 60.0, Calcium Level 7.4L 11/08/19 18:01: Neutrophils (%) (Auto) , Nucleated Red Blood Cells % (auto) 0.0, Activated Partial Thromboplast Time 45.6H CBC/BMP Laboratory Tests 11/07/19 19:32 11/08/19 05:40 11/08/19 09:40 11/08/19 11:39 11/08/19 14:12 11/08/19 18:01 Microbiology Microbiology 11/08/19 Wound Culture, Received Pending 11/08/19 Blood Culture, Received Pending 11/07/19 Blood Culture - Preliminary, Resulted 11/07/19 Blood Culture - Preliminary, Resulted Allergies Coded Allergies: No Known Allergies (Unverified , 11/07/19) Home Medications Scheduled PRN Albuterol Sulfate (Ventolin Hfa) 18 Gm Hfa.aer.ad, 2 PUFF INH Q6H PRN for SHORTNESS OF BREATH, (Reported) Ibuprofen (Ibuprofen) 200 Mg Capsule, 600 MG PO QID PRN for PAIN, (Reported) STACEY RIOS MD November 08, 2019 18:55
[2019-11-08 21:47] LABS: ALBUMIN 1.2 GM/DL (3.2-5.2); BLOOD UREA NITROGEN 10 MG/DL (7-18); CALCIUM LEVEL 6.9 MG/DL (8.5-10.1); CARBON DIOXIDE LEVEL 26 MEQ/L (21-32); CHLORIDE LEVEL 96 MEQ/L (98-107); CREATININE FOR GFR 0.66 MG/DL (0.55-1.30); GLOMERULAR FILTRATION RATE > 60.0 (>58); GLUCOSE, FASTING 99 MG/DL (70-100); MAGNESIUM LEVEL 1.7 MG/DL (1.8-2.4); POTASSIUM SERUM 3.5 MEQ/L (3.5-5.1); SODIUM LEVEL 130 MEQ/L (136-145)
[2019-11-08] MEDS: SODIUM CHLORIDE 0.9% INJ 10 ML SYR IV SCH (22:04)
--- NOTE | 2019-11-08 22:06 | ECHO ---
DATE OF PROCEDURE: 11/08/2019 DATE OF : 1980 REASON FOR THE STUDY: Sepsis. PATIENT LOCATION: Intensive care unit/coronary care unit (ICU/CCU). 2D MEASUREMENTS: IVS: 0.9 cm LV: 4.5 cm LVPW: 0.9 cm LA: 3.4 cm Aorta: 2.8 cm IVC: 2.1 cm DOPPLER MEASUREMENTS: Peak velocity across the aortic valve: 1.5 meters per second Peak velocity across the LVOT: 1.1 meters per second Mitral E: 0.9, Mitral A: 0.6 with a ratio of 1.4. Maximum tricuspid valve velocity: 2.8 meters per second 2D COMMENTS: 1. Normal left ventricular size, wall thickness, and normal global left ventricular systolic function. The estimated left ventricular systolic ejection fraction is 60-65%. 2. Normal left atrium. The right atrium, and the right ventricle appeared to be minimally enlarged. The right ventricular free wall was dasha. 3. The atrial septum appeared to be normal without evidence of defect or shunt. 4. Normal aortic root. 5. Trace pericardial effusion noted, no evidence of cardiac tamponade. Probably right pleural effusion also noted. 6. Normal aortic valve and mitral valve. There is a large echogenic structure noted on the tricuspid valve, moving back and forth in the right ventricle and the right atrium. Sizes in different views were: 1.7 x 1.25 cm, 2.4 x 0.9 cm, 2.8 x 1.6 cm. The pulmonic valve appeared to be normal. The proximal pulmonary artery branches were not well visualized. 7. The inferior vena cava was mildly enlarged, central venous pressure might be elevated. DOPPLER : It detects trace mitral regurgitation and moderately severe tricuspid regurgitation that is eccentric. The calculated pulmonary artery systolic pressure varies between 30-40 mmHg but might be higher. Assessment of the left ventricular diastolic function was normal. IMPRESSION: 1. Normal global left ventricular systolic and diastolic function. 2. Trace mitral regurgitation. 3. Significantly large vegetations noted on the tricuspid valve as described above. 4. Moderately severe tricuspid regurgitation with mild pulmonary hypertension. Calculated pulmonary artery systolic pressure might be underestimated. 5. The inferior vena cava was mildly enlarged. 6. Case was discussed earlier this afternoon with infectious disease (ID), and a transesophageal echocardiogram was recommended.
--- NOTE | 2019-11-08 22:12 | ECGEPIP ---
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
[2019-11-08] MEDS ORDERED: MAG SULF 1GM/100ML (MAG RUN) 1 GM in IV 1 EA IV ONE (22:30)
[2019-11-09] VITALS (20 sets, daily range): BP systolic 120–147; BP diastolic 59–89
[2019-11-09] MEDS: HEPARIN DRIP 25,000 UNITS in IV 1 EA IV SCH (00:13)
[2019-11-09] MEDS: VANCOMYCIN HCL 1,000 MG, VIAL MATE ADAPTER 1 EACH in D5W 250 ML IV SCH (00:14)
[2019-11-09 01:08] LABS: BLOOD UREA NITROGEN 10 MG/DL (7-18); CALCIUM LEVEL 6.9 MG/DL (8.5-10.1); CARBON DIOXIDE LEVEL 26 MEQ/L (21-32); CHLORIDE LEVEL 96 MEQ/L (98-107); CREATININE FOR GFR 0.58 MG/DL (0.55-1.30); GLOMERULAR FILTRATION RATE > 60.0 (>58); GLUCOSE, FASTING 119 MG/DL (70-100); POTASSIUM SERUM 3.2 MEQ/L (3.5-5.1); SODIUM LEVEL 130 MEQ/L (136-145)
[2019-11-09] MEDS: KCL 20MEQ IN 100ML SWI (KRUN) 20 MEQ in IV 1 EA IV SCH ×4 (01:43→02:34)
[2019-11-09] MEDS: CLINDAMYCIN 900 MG in IV 1 EA IV SCH ×2 (03:12→10:00)
[2019-11-09 03:22] LABS: HEMATOCRIT 23.4 % (36.0-47.0); HEMOGLOBIN 7.6 g/dl (12.0-15.5); MEAN CORPUSCULAR HEMOGLOBIN 23.8 pg (27.0-33.0); MEAN CORPUSCULAR HGB CONC 32.5 g/dl (32.0-36.5); MEAN CORPUSCULAR VOLUME 73.1 fl (80.0-96.0); PLATELET COUNT, AUTOMATED 104 10^3/uL (150-450); WHITE BLOOD COUNT 20.5 10^3/uL (4.0-10.0)
[2019-11-09 03:46] LABS: EOSINOPHILS 1 % (0-3); LYMPHOCYTES 3 % (16-44); MONOCYTES 8 % (0-5); MYELOCYTES 1 % (0-0); NEUTROPHILS 87 % (28-66)
[2019-11-09 03:47] LABS: PLATELET ESTIMATE DECREASED (NORMAL)
[2019-11-09 03:48] LABS: ANISOCYTOSIS 1+; MICROCYTOSIS 1+; TOXIC VACUOLATION 1+
[2019-11-09] MEDS: NS 1,000 ML IV SCH ×2 (04:06→11:54)
--- NOTE | 2019-11-09 04:43 | CR ---
DATE OF CONSULTATION: 11/08/2019 INFECTIOUS DISEASE CONSULTATION: Asked to consult by hospitalist for evaluation of gram-positive bacteremia with septic emboli to the lungs and cavitary lesions. 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 She was up on a tree, trying to make a home for some cats who were getting kittens. As soon as she landed on her feet, she developed severe pruritus of both lower extremities. She then developed severe itching and started scratching her lower extremity. Over the past 5 weeks, she has had increasing shortness of breath with exertion, generalized body aches, worsening lesions on her legs. She had not been able to take care of herself or get out of bed due to severe leg pain, neck pain, back pain. The last time she made a meal for her daughter was spaashaetti 2 weeks ago. She had some fever and chills initially when she fell from the tree about for a week, and then they resolved and then they recurred the past couple weeks. She stated she gained a lot of weight in the past week from swelling in her hands and feet even though she had not been eating but just drinking. She was not able to walk and, therefore, was moving around on her hands and feet. In the emergency room, she was septic. She had lactic acidosis. She was hypotensive. CT chest with angiogram was suggestive of pulmonary emboli and cavitary pneumonias consistent with multiple septic emboli. She received intravenous (IV) vancomycin and Zosyn. She has no previous history of methicillin-resistant Staphylococcus aureus (MRSA). Denies IV drug abuse. PAST MEDICAL HISTORY: Is significant for asthma, for which she takes an albuterol as needed. She does not have a primary care provider. She gets albuterol from her daughter's father, who is a traveling hospitalist and right now is in [place]. PAST SURGICAL HISTORY: Bilateral bunionectomies years ago. SOCIAL HISTORY: She stopped working at [employer] about a year ago and had some issues that she does not want to tell us. Her daughter is 15 years old, goes to school. She has a sister in [place], who is her health care proxy. She has been unemployed for over a year and currently just got Medicaid. She smokes a pack of cigarettes a day for the past 11 years. She denies alcohol or drug abuse. FAMILY HISTORY: Hypertension in her mother. REVIEW OF SYSTEMS: She aches all over. Has gained weight. Has had no appetite. Has only been drinking. She denies chest pain. She has shortness of breath with exertion and a dry, nonproductive cough. She denies abdominal pain, nausea, vomiting, or diarrhea. She is menopausal at the age of 33. ON PHYSICAL EXAM: Maximum temperature (Tmax) was 102.7 yesterday; today was 98. Pulse 80, respirations 26, blood pressure 93/53, oxygen saturation was 97%. Blood pressure was down to 89 at 5 a.m. Sick looking female, in moderate discomfort. Heart: Normal S1 and S2, tachycardiac, with a holosystolic ejection murmur heard at the left upper sternal border. Lungs: Crackles at the bases. No wheezes or rhonchi. Good air entry. Abdomen: Soft, nontender. No hepatosplenomegaly. Large tattoo on the abdomen. Back: No costovertebral angle (CVA) or lumbosacral tenderness. Musculoskeletal exam: No cervical or lumbosacral tenderness. There is no point tenderness along any of the vertebrae. Extremities: +1 pitting edema of both hands and feet with erythematous rash involving both hands and feet that is blanching, warm. Both extremities are swollen, but she has normal range of motion of the knees and the hips in spite of pain. Skin: Has multiple necrotic lesions on the right calf, which is foul smelling, measuring about 8 x 4 x 5 cm, the left calf as well. The left upper thigh has a healed lesion, which is scarred over. There are other multiple blanching maculopapular rashes on her upper thigh. No lesions on the back, abdomen. Neck: Is supple. No jugular venous distention (JVD). No bruits. No adenopathy. Oropharynx is clear with no lesions. No thrush. Good dentition. Pupils equal and reactive, anicteric, with no conjunctival lesions. Blood cultures on 11/07/2019: Two sets are positive for gram-positive cocci in clusters. White count was 18.9 yesterday, today 13.8. Hemoglobin 7.6, hematocrit 23.7, platelets 94, 86% neutrophils, 5% lymphocytes, 8% monocytes. Sodium 133, potassium 3.4, chloride 98, bicarbonate 31, BUN 12, creatinine 0.58, glucose 114, calcium 7.4, procalcitonin 1.47. Rheumatoid factor less than 10. MRSA screen was positive, and COVID testing is negative. Vascular ultrasound upper and lower extremities: Both were negative. Chest CT showed multiple cavitary lesions measuring between 1.7 to 2.8 cm with thick-walled cavitations, extensive areas of airspace consolidation, consistent with septic emboli/necrotizing pneumonia. There was also nonocclusive pulmonary embolic disease. CT of the abdomen and pelvis showed no acute pathology in the abdomen. IMPRESSION: This is a 39-year-old female who presented with a 5-week history of illness that started after a fall from a tree, developed some skin lesions, following which she has developed progressive shortness of breath, generalized body aches, and sepsis. The patient was found to have a vegetation on her tricuspid valve measuring 2.4 cm with multiple septic emboli to the lung and cavitary lesions. She has severe tricuspid regurgitation. There is no evidence of vegetations on the left side of the heart, aortic or mitral valve at this point. Patient has been on IV vancomycin and Zosyn since admission. She has denied IV drug use adamantly to Dr. Rios and myself. She could have developed bacteremia from skin lesions from methicillin-resistant Staphylococcus aureus, following which she developed a vegetation on her tricuspid valve with septic emboli to the lungs. PLAN: 1. Continue with IV vancomycin 1 gram every 12 hours. Would discontinue IV Zosyn and start her on clindamycin 900 mg every 8 hours for toxin inhibition for the next 2-4 days. Consult with dermatology has been done. I did call Dr. Rios, who did a punch biopsy of her right foot and right calf area. Lesions are suggestive of vasculitis. The calf lesions could suggest pyoderma gangrenosum, although less likely in this situation. 2. Consult cardiology for severe tricuspid regurgitation and large vegetation. Patient would definitely need a transesophageal echocardiogram to rule out left-sided endocarditis. This could be done early next week. Repeat two sets of blood cultures and until negative. Thank you for consultation.
[2019-11-09] MEDS: SODIUM CHLORIDE 0.9% INJ 10 ML SYR IV SCH ×2 (05:32→13:19)
[2019-11-09 06:54] LABS: ALBUMIN 1.2 GM/DL (3.2-5.2); ALT/SGPT 29 U/L (12-78); BILIRUBIN,TOTAL 1.2 MG/DL (0.2-1.0); BLOOD UREA NITROGEN 9 MG/DL (7-18); CALCIUM LEVEL 6.7 MG/DL (8.5-10.1); CARBON DIOXIDE LEVEL 26 MEQ/L (21-32); CHLORIDE LEVEL 96 MEQ/L (98-107); CREATININE FOR GFR 0.45 MG/DL (0.55-1.30); GLOMERULAR FILTRATION RATE > 60.0 (>58); GLUCOSE, FASTING 107 MG/DL (70-100); MAGNESIUM LEVEL 1.9 MG/DL (1.8-2.4); POTASSIUM SERUM 3.4 MEQ/L (3.5-5.1); SODIUM LEVEL 130 MEQ/L (136-145); TOTAL PROTEIN 6.3 GM/DL (6.4-8.2)
[2019-11-09 10:56] LABS: HEPATITIS C VIRUS ABY INDEX 0.2 INDEX (<0.8); HIV 1&2 SCREEN CENTAUR NEGATIVE (NEGATIVE)
[2019-11-09] MEDS ORDERED: ENOXAPARIN 80MG/0.8ML SYRINGE (J1650 PER 10MG) SC SCH (11:00)
[2019-11-09 11:43] LABS: HEMOGLOBIN 7.3 g/dl (12.0-15.5); MEAN CORPUSCULAR HEMOGLOBIN 23.2 pg (27.0-33.0); MEAN CORPUSCULAR HGB CONC 31.7 g/dl (32.0-36.5); MEAN CORPUSCULAR VOLUME 73.2 fl (80.0-96.0); PLATELET COUNT, AUTOMATED 113 10^3/uL (150-450); RED BLOOD COUNT 3.14 10^6/uL (4.00-5.40); WHITE BLOOD COUNT 20.1 10^3/uL (4.0-10.0)
[2019-11-09] MEDS: ONDANSETRON 4MG/2ML VIAL IV PRN ×2 (11:51→15:48)
[2019-11-09 12:01] LABS: BLOOD UREA NITROGEN 9 MG/DL (7-18); CALCIUM LEVEL 7.1 MG/DL (8.5-10.1); CARBON DIOXIDE LEVEL 26 MEQ/L (21-32); CHLORIDE LEVEL 97 MEQ/L (98-107); CREATININE FOR GFR 0.46 MG/DL (0.55-1.30); GLOMERULAR FILTRATION RATE > 60.0 (>58); GLUCOSE, FASTING 106 MG/DL (70-100); POTASSIUM SERUM 3.3 MEQ/L (3.5-5.1); SODIUM LEVEL 131 MEQ/L (136-145); VANCOMYCIN LEVEL TROUGH 5.7 UG/ML (10.0-20.0)
--- NOTE | 2019-11-09 12:04 | IPNPDOC ---
Text Note Date of Service The patient was seen on 11/09/19. NOTE Subjective: Patient continues to have generalized weakness with increased rachana rtness of breath. Currently she is on 2 L via nasal cannula. Itchiness resolved. Patient adamantly denied any IV drug use. Objective: VITAL SIGNS: Please see below. GENERAL: In moderate distress, tearful HEENT: NCAT, anicteric sclera, MARGARITA NECK: supple, no JVD CARDIOVASCULAR EXAMINATION: NS1S2, regular rate/rhythm RESPIRATORY EXAMINATION: Diminished lung sounds, bilateral rhonchi at the bases ABDOMINAL EXAMINATION: Distended, nontender EXTREMITIES: Erythematous skin over both feet, multiple petechia of lower extremities, +1 pitting edema of lower extremities with scaly chronic skin changes, extensive wound stage 4 around 5- 6 cm both lateral side of distal legs. Erythema of both hands. Splinter nails hemorrhages NEUROLOGICAL EXAMINATION: AAO x 3, no motor/sensory deficits Patient is 39 years old female with past medical history of asthma presented to the hospital with sepsis. Patient was found to have bilateral pulmonary emboli, multifocal pneumonia with cavitary lesions. Blood culture came back positive with gram-positive cocci in clusters on 11/08/19. Sepsis Most likely secondary to skin infection which spread hematogenously to the lungs. 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 Also there is high possibility that its infectious emboli given large tricuspid valve vegetations. No history of blood clots before Continue therapeutic dose of Lovenox Bilateral pneumonia Most likely patient developed septic emboli secondary to bilateral legs cellulitis and ulcers. There is high concern for possible IV drug abuse CTA showed extensive areas of airspace consolidation with cavitary lesions within all lobes of the lungs. Findings are likely consistent with inflammatory process including septic emboli or necrotizing pneumonia. Continue broad-spectrum antibiotics Incentive spirometry Skin rash/petechia Most likely secondary to sepsis due to gram-positive cocci in clusters, most likely staph aureus septicemia Punch biopsy was done yesterday Stage IV legs wound I will talk to surgical team about possible repeated debridement Also that is high concern for osteomyelitis given stage IV extensive wound with of both legs Hypokalemia Replaced BMP every 4 hours VS,Fishbone, I+O VS, Fishbone, I+O Laboratory Tests 11/08/19 14:12 11/08/19 18:01 11/08/19 20:52 11/09/19 00:19 11/09/19 03:14 11/09/19 05:55 11/09/19 11:18 Vital Signs Date Time Temp Pulse Resp B/P (MAP) Pulse Ox O2 Delivery O2 Flow Rate FiO2 11/09/19 11:00 97 20 131/86 (101) Nasal Cannula 2.0 11/09/19 10:00 97 11/09/19 08:00 98.2 I&O- Last 24 Hours up to 6 AM 11/09/19 06:00 Intake Total 6016 ml Output Total 2300 ml Balance 3716 ml JETT KENT DO November 09, 2019 12:04
[2019-11-09 12:12] LABS: ANISOCYTOSIS 1+; LYMPHOCYTES 10 % (16-44); MICROCYTOSIS 1+; MONOCYTES 4 % (0-5); MYELOCYTES 1 % (0-0); NEUTROPHILS 78 % (28-66); PLATELET ESTIMATE DECREASED (NORMAL)
[2019-11-09 12:14] LABS: HYPOCHROMASIA 1+
[2019-11-09] MEDS ORDERED: VANCOMYCIN HCL 1,000 MG, VIAL MATE ADAPTER 1 EACH in D5W 250 ML IV SCH (13:00)
[2019-11-09] MEDS ORDERED: VANCOMYCIN HCL 500 MG in D5W MINI-BAG PLUS 100 ML IV ONE (14:00)
[2019-11-09] MEDS: ACETAMINOPHEN TAB 650MG DOSE (2X325MG) PO PRN (15:49)
--- NOTE | 2019-11-09 16:44 | DS.PDOC ---
Discharge Summary General Date of Admission November 07, 2019 at 23:46 Date of Discharge 11/09/19 Discharge Summary PROCEDURES PERFORMED DURING STAY: [None]. ADMITTING DIAGNOSES: Sepsis Acute Endocarditis Bilateral PE Skin rash/petechia Bilateral pneumonia Skin rash/petechia Stage IV legs wound Hypokalemia DISCHARGE DIAGNOSES: Sepsis Acute Endocarditis Bilateral PE Skin rash/petechia Bilateral pneumonia Skin rash/petechia Stage IV legs wound Hypokalemia COMPLICATIONS/CHIEF COMPLAINT: Bilateral Leg Ulcer, Pulmonary Emboli. 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 She was up on a tree, trying to make a home for some cats who were getting kittens. As soon as she landed on her feet, she developed severe pruritus of both lower extremities. She then developed severe itching and started scratching her lower extremity. Over the past 5 weeks, she has had increasing shortness of breath with exertion, generalized body aches, worsening lesions on her legs. She had not been able to take care of herself or get out of bed due to severe leg pain, neck pain, back pain. The last time she made a meal for her daughter was sebastian 2 weeks ago. She had some fever and chills initially when she fell from the tree about for a week, and then they resolved and then they recurred the past couple weeks. She stated she gained a lot of weight in the past week from swelling in her hands and feet even though she had not been eating but just drinking. She was not able to walk and, therefore, was moving around on her hands and feet. In the emergency room, she was septic. She had lactic acidosis. She was hypotensive. CT chest with angiogram was suggestive of pulmonary emboli and cavitary pneumonias consistent with multiple septic emboli. She received intravenous (IV) vancomycin and Zosyn. She has no previous history of methicillin-resistant Staphylococcus aureus (MRSA). Denies IV drug abuse. HOSPITAL COURSE: During hospital course the following issue addressed Sepsis Most likely secondary to skin infection which spread hematogenously to the lungs. However, there is concern for possible IV drug use Blood culture positive for staph aureus Continue vancomycin and clindamycin for toxin inhibition Continue IV fluid Repeat blood culture TTE positive for tricuspid vegetation, Sizes in different views were: 1.7 x 1.25 cm, 2.4 x 0.9 cm, 2.8 x 1.6 cm Acute Endocarditis Most likely secondary to staph aureus bacteremia Patient will need NAYELY and prolonged course of antibiotics Dr. Ragland recommended to transfer patient to cardiothoracic unit Bilateral PE Most likely due to sepsis superimposed with prolonged immobilization. Also there is high possibility that its infectious emboli given large tricuspid valve veg etations. No history of blood clots before Continue therapeutic dose of Lovenox Bilateral pneumonia Most likely patient developed septic emboli secondary to bilateral legs cellulitis and ulcers. There is high concern for possible IV drug abuse CTA showed extensive areas of airspace consolidation with cavitary lesions within all lobes of the lungs. Findings are likely consistent with inflammatory process including septic emboli or necrotizing pneumonia. Continue broad-spectrum antibiotics Incentive spirometry Skin rash/petechia Most likely secondary to sepsis due to gram-positive cocci in clusters, most likely staph aureus septicemia Punch biopsy was done yesterday Stage IV legs wound I will talk to surgical team about possible repeated debridement Also that is high concern for osteomyelitis given stage IV extensive wound with of both legs Hypokalemia Replaced BMP every 4 hours DISCHARGE MEDICATIONS: Please see below. ALLERGIES: Please see below. PHYSICAL EXAMINATION ON DISCHARGE: VITAL SIGNS: Please see below. GENERAL: In moderate distress, tearful HEENT: NCAT, anicteric sclera, MARGARITA NECK: supple, no JVD CARDIOVASCULAR EXAMINATION: NS1S2, regular rate/rhythm RESPIRATORY EXAMINATION: Diminished lung sounds, bilateral rhonchi at the bases ABDOMINAL EXAMINATION: Distended, nontender EXTREMITIES: Erythematous skin over both feet, multiple petechia of lower extremities, +1 pitting edema of lower extremities with scaly chronic skin changes, extensive wound stage 4 around 5- 6 cm both lateral side of distal legs. Erythema of both hands. Splinter nails hemorrhages NEUROLOGICAL EXAMINATION: AAO x 3, no motor/sensory deficits LABORATORY DATA: Please see below. IMAGING: [facility] NAME: VEENA EATON DATE OF : 1980 BUSINESS NUMBER: [id number] AGE: 39 SEX: F REPORT #: [id number] ROOM: ED TECHNOLOGIST: ANALISA DOCTOR: GERMAINE ACUNA DO Ordered for Date&Time: 11/07/192037 cc: [~ rep ct ivnm] Service Date&Time: 11/07/192118 This report is in Signed status. Interpretation performed by [facility]. Thank you for having your radiology procedures performed at [facility] RADIOLOGY REPORT Date&Time printed: [~ rep prt dt last] [~ rep prt tm last] Page [address] of [address] [address] RADIOLOGY REPORT This report is in Signed status. Interpretation performed by [facility]. Thank you for having your radiology procedures performed at [facility] RADIOLOGY REPORT Date&Time printed: [~ rep prt dt last] [~ rep prt tm last] Page 1 of 2 PROCEDURE INFORMATION: Exam: CT Angiography Chest With Contrast Exam date and time: 11/07/2019 9:19 PM Age: 39 years old Clinical indication: Shortness of breath; Additional info: SOB, tachycardia TECHNIQUE: Imaging protocol: Computed tomographic angiography of the chest with intravenous contrast. 3D rendering: MIP and/or 3D reconstructed images were created by the technologist. Radiation optimization: All CT scans at this facility use at least one of these dose optimization techniques: automated exposure control; mA and/or kV adjustment per patient size (includes targeted exams where dose is matched to clinical indication); or iterative reconstruction. Contrast material: ISOVUE 370; Contrast volume: 100 ml; Contrast route: IV; COMPARISON: No relevant prior studies available. FINDINGS: There is satisfactory opacification of the pulmonary arterial system. There is a near occlusive filling defect within a subsegmental branch of the pulmonary arterial system of the left lower lobe (image number 131). There is a nonocclusive filling defect within a subsegmental branch of the pulmonary arterial system of the right lower lobe. Findings are consistent with bilateral pulmonary embolic disease. Clot burden is considered small. Innumerable thick-walled cavitary lesions are identified throughout all lobes of the lungs. The largest in the right lower lobe measures up to 20 x 17 mm. The largest in the left lower lobe measures up to 22 by 16 mm. Largest confluent area of airspace consolidation with cavitary component in the right upper lobe measures up to 28 x 23 mm. Largest confluent area of airspace consolidation with cavitary component in the left upper lobe measures up to 17 x 14 mm. Findings are likely consistent with infectious etiology, including septic emboli. No large pleural effusion. Mediastinal structures are grossly normal. No thoracic lymphadenopathy. IMPRESSION: Near occlusive pulmonary embolic disease within subsegmental branches of the left lower lobe. Nonocclusive pulmonary embolic disease within subsegmental branches of the right lower lobe. Findings are consistent with bilateral pulmonary embolic disease. Clot burden is considered small. Extensive areas of airspace consolidation with cavitary lesions within all lobes of the lungs. Findings are likely consistent with inflammatory process including septic emboli or necrotizing pneumonia. Follow-up to resolution is recommended. If this fails to resolve after medical therapy, bronchoscopy is recommended.. Electronically signed by: Lalita Green On 11/07/2019 22:18:29 PM DD: LALITA GREEN MD 11/07/192118 DT: HOLLIE 11/07/192217 DS: NIHARIKA 11/07/192217 [~ rep ct labl] DATE OF PROCEDURE: 11/08/2019 DATE OF : 1980 REASON FOR THE STUDY: Sepsis. PATIENT LOCATION: Intensive care unit/coronary care unit (ICU/CCU). 2D MEASUREMENTS: IVS: 0.9 cm LV: 4.5 cm LVPW: 0.9 cm LA: 3.4 cm Aorta: 2.8 cm IVC: 2.1 cm DOPPLER MEASUREMENTS: Peak velocity across the aortic valve: 1.5 meters per second Peak velocity across the LVOT: 1.1 meters per second Mitral E: 0.9, Mitral A: 0.6 with a ratio of 1.4. Maximum tricuspid valve velocity: 2.8 meters per second 2D COMMENTS: 1. Normal left ventricular size, wall thickness, and normal global left ventricular systolic function. The estimated left ventricular systolic ejection fraction is 60-65%. 2. Normal left atrium. The right atrium, and the right ventricle appeared to be minimally enlarged. The right ventricular free wall was dasha. 3. The atrial septum appeared to be normal without evidence of defect or shunt. 4. Normal aortic root. 5. Trace pericardial effusion noted, no evidence of cardiac tamponade. Probably right pleural effusion also noted. 6. Normal aortic valve and mitral valve. There is a large echogenic structure noted on the tricuspid valve, moving back and forth in the right ventricle and the right atrium. Sizes in different views were: 1.7 x 1.25 cm, 2.4 x 0.9 cm, 2.8 x 1.6 cm. The pulmonic valve appeared to be normal. The proximal pulmonary artery branches were not well visualized. 7. The inferior vena cava was mildly enlarged, central venous pressure might be elevated. DOPPLER : It detects trace mitral regurgitation and moderately severe tricuspid regurgitation that is eccentric. The calculated pulmonary artery systolic pressure varies between 30-40 mmHg but might be higher. Assessment of the left ventricular diastolic function was normal. IMPRESSION: 1. Normal global left ventricular systolic and diastolic function. 2. Trace mitral regurgitation. 3. Significantly large vegetations noted on the tricuspid valve as described above. 4. Moderately severe tricuspid regurgitation with mild pulmonary hypertension. Calculated pulmonary artery systolic pressure might be underestimated. 5. The inferior vena cava was mildly enlarged. 6. Case was discussed earlier this afternoon with infectious disease (ID), and a transesophageal echocardiogram was recommended. DD: SIDRA RAGLAND MD 11/08/191931 DT: MODESTO 11/08/192147 DS: DS2: [~ rep ct labl] PROGNOSIS: Guarded ACTIVITY: [As tolerated]. DIET: Cardiac DISCHARGE PLAN: Transfer to [facility] DISPOSITION: 02 Xfer To Acute Hosp. DISCHARGE CONDITION: [Stable]. TIME SPENT ON DISCHARGE: Greater than 40 minutes. Vital Signs/I&Os Vital Signs Date Time Temp Pulse Resp B/P (MAP) Pulse Ox O2 Delivery O2 Flow Rate FiO2 11/09/19 15:00 105 28 141/78 (99) 96 Nasal Cannula 2.0 11/09/19 12:00 97.9 I&O- Last 24 Hours up to 6 AM 11/09/19 06:00 Intake Total 6016 ml Output Total 2300 ml Balance 3716 ml Laboratory Data Labs 24H Laboratory Tests 2 11/08/19 18:01: Neutrophils (%) (Auto) , Nucleated Red Blood Cells % (auto) 0.0, Neutrophils 66, Band Neutrophils 19H, Lymphocytes (Manual) 11L, Monocytes (Manual) 1, Myelocytes 2H, Atypical Lymphocytes 1, Polychromasia 1+, Anisocytosis 1+, Microcytosis 1+, Tear Drop Cells 1+, Platelet Estimate NORMAL, Erythrocyte Sedimentation Rate 93H, Activated Partial Thromboplast Time 45.6H, Anion Gap 6L, Glomerular Filtration Rate > 60.0, Calcium Level 7.0L, Hepatitis C Antibody Index 0.2, HIV Antigen/Antibody Combo Qual NEGATIVE 5/14/20 20:52: Anion Gap 8, Glomerular Filtration Rate > 60.0, Calcium Level 6.9L, Magnesium Level 1.7L, Albumin 1.2L 11/09/19 00:19: Activated Partial Thromboplast Time 71.6H, Anion Gap 8, Glomerular Filtration Rate > 60.0, Calcium Level 6.9L 11/09/19 03:14: Neutrophils (%) (Auto) , Nucleated Red Blood Cells % (auto) 0.0, Neutrophils 87H, Lymphocytes (Manual) 3L, Monocytes (Manual) 8H, Myelocytes 1H, Anisocytosis 1+, Microcytosis 1+, Platelet Estimate DECREASED, Eosinophils (Manual) 1, Toxic Vacuolation 1+ 11/09/19 05:55: Erythrocyte Sedimentation Rate > 140H, Activated Partial Thromboplast Time 65.8H, Anion Gap 8, Glomerular Filtration Rate > 60.0, Calcium Level 6.7L, Ma gnesium Level 1.9, Total Bilirubin 1.2H, Aspartate Amino Transf (AST/SGOT) 79H, Alanine Aminotransferase (ALT/SGPT) 29, Alkaline Phosphatase 214H, C-Reactive Protein, Quantitative 24.30H, Total Protein 6.3L, Albumin 1.2L, Albumin/Globulin Ratio 0.2L 11/09/19 11:18: Anion Gap 8, Glomerular Filtration Rate > 60.0, Calcium Level 7.1L, Neutrophils (%) (Auto) , Nucleated Red Blood Cells % (auto) 0.0, Neutrophils 78H, Band Neutrophils 7, Lymphocytes (Manual) 10L, Monocytes (Manual) 4, Myelocytes 1H, Hypochromasia 1+, Anisocytosis 1+, Microcytosis 1+, Platelet Estimate DECREASED, Vancomycin Level Trough 5.7L CBC/BMP Laboratory Tests 11/08/19 18:01 11/08/19 20:52 11/09/19 00:19 11/09/19 03:14 11/09/19 05:55 11/09/19 11:18 Microbiology Microbiology 11/09/19 Blood Culture, Received Pending 11/08/19 Wound Culture - Preliminary, Resulted Staphylococcus Aureus 11/08/19 Blood Culture - Preliminary, Resulted No growth after 24 hours . All specim... 11/07/19 Blood Culture - Preliminary, Resulted Staphylococcus Aureus 11/07/19 Blood Culture - Preliminary, Resulted Staphylococcus Aureus Discharge Medications Scheduled PRN Albuterol Sulfate (Ventolin Hfa) 18 Gm Hfa.aer.ad, 2 PUFF INH Q6H PRN for SHORTNESS OF BREATH, (Reported) Allergies Coded Allergies: No Known Allergies (Unverified , 11/07/19) JETT KENT DO November 09, 2019 16:44
--- NOTE | 2019-11-09 21:58 | IPN ---
DATE: 11/09/2019 Veena was seen this morning in the intensive care unit (ICU). She was complaining of increasing shortness of breath and, therefore, she had been placed on two liters nasal cannula due to hypoxia overnight. She has a mild nonproductive cough. She denies any pain in lower extremities except with dressing changes. She complains of generalized body ache, but mostly with movement, especially in the shoulders. She definitely is doing better than yesterday with movement. She was able to get out of bed to use the bedside commode to urinate. She denies any itching. Vital signs: Temperature is 97.9, pulse 114, respirations 24, oxygen saturation (O2 sat) 99% on 2 liters nasal cannula, down to 81% on room air this morning. Heart: Normal S1, S2, tachycardiac. Holosystolic ejection murmur heard 3/6 at the left upper sternal border and left lower sternal border. Lungs: Crackles at the bases. No wheezes or rhonchi. Abdomen: Soft, nontender. No hepatosplenomegaly. Extremities: +1 to 2 pitting edema bilaterally. Large necrotic ulcers on both calves laterally, right with foul-smelling, deep, black eschar in the center. The ulcer measures around 15 x 8 cm on the right side and 12 x 7 cm on the left side. There are other lesions multiple stages, some are erythematous papular lesions, others are healed up, scarred lesions, hypo and hyperpigmented changes. Hands bilaterally swollen, erythematous but no open lesions. No neck stiffness. No jugular venous distention (JVD). Oropharynx: No lesions. Pupils equal and reactive, anicteric without any petechiae. Musculoskeletal exam: The patient is able to move hips, knees, ankles, shoulders with passive range of motion. I am able to elevate both shoulders even though she cannot do it on her own. No point tenderness along the vertebra. LABS: White count 20.1, hemoglobin 7.3, hematocrit 23, platelets 113, 78% neutrophils, 7% bands, 10% lymphocytes, 4% monocytes. ESR more than 140. Sodium 131, potassium 3.3, chloride 97, bicarbonate 26, BUN 9, creatinine 0.46, glucose 106, calcium 7.1, bilirubin 1.2, AST 79, ALT 29, alkaline phosphatase 214, CRP 24.3, albumin 1.2, total protein 6.3. HIV negative, hepatitis C negative. Methicillin-resistant Staphylococcus aureus (MRSA) PCR positive. COVID-19 PCR negative. Blood cultures 11/07/2019 two sets are positive for Staphylococcus (staph) aureus. Wound culture is positive for staph aureus. Blood culture on 11/08/2019 - no growth after 24 hours and blood culture from 11/09/2019 is pending. Echocardiogram read by Dr. Beauchamp, transthoracic, on 11/08/2019 shows a normal left ventricular size, thickness and ejection fraction 60-65%. Normal left atrium, right atrium, and right ventricle appeared to be mildly enlarged. Normal aortic and mitral valve. There is a large echogenic structure noted on the tricuspid valve measuring 2.4 x 1 cm. This is associated with moderately severe tricuspid regurgitation. IMPRESSION: 1. 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 This is associated with multiple septic emboli to the lungs. The patient has been on IV vancomycin and clindamycin, currently day #2. Repeat blood culture on 11/08/2019 so far is negative. 2. Necrotic lesions on lower extremities with positive culture for staph aureus. Biopsy was done from the right calf and the right foot to rule out other possible etiologies, such as pyoderma gangrenosum and vasculitis from endocarditis. Vashe dressing is being done on those open wounds. 3. history of alcohol abuse in 2014, but the patient denies IV drug use, although the father had called concerned about that issue, patient has denied it. PLAN: Continue IV vancomycin, currently at a dose of 1 gram every 8 hours, vancomycin trough was 5.7 and therefore her dose was increased from every 12 hours to every 8 hours. Continue clindamycin 900 mg every 8 hours for toxin inhibition. Probably that could be discontinued after 48 hours since her hypotension has resolved. Consult cardiology who recommended transfer to [place] for such a large vegetation and severe tricuspid regurgitation. [facility]
== END 2019-11-09 16:15 | disposition short-term general hospital (02) | DRG 720 ==
LOC: M ED 18:39 → M ED INP 23:46 → EEVIPCON 23:46 → ENRESERV 11-08 01:33 → M ICU 11-08 03:21
PROVIDERS: ADMIT Internal Medicine; ATTEND Internal Medicine
PROC: 02HV33Z Insertion of Infusion Device into Superior Vena Cava, Percutaneous Approach (ICD-10-PCS; principal; 2019-11-07)
DX: A41.9 Sepsis, unspecified organism (principal); I26.99 Other pulmonary embolism without acute cor pulmonale; I33.0 Acute and subacute infective endocarditis; E87.2 Acidosis; J18.9 Pneumonia, unspecified organism; I07.9 Rheumatic tricuspid valve disease, unspecified; L97.229 Non-pressure chronic ulcer of left calf with unspecified severity; L97.219 Non-pressure chronic ulcer of right calf with unspecified severity; E87.6 Hypokalemia; R23.3 Spontaneous ecchymoses; L03.115 Cellulitis of right lower limb; L03.116 Cellulitis of left lower limb

== ENCOUNTER 2020-01-04 15:23 | Observation (INO) | payer MEDICAID ==
[~2020-01-04] VITALS: Ht 165.1 cm; Wt 61.1 kg
[~2020-01-04 15:23] MED LIST: IBUP200C28 PO; VENTAER INH
[2020-01-04] MEDS ORDERED: FUROSEMIDE 20MG/2ML VIAL (J1940) IV ONE (17:15)
[2020-01-04] MEDS ORDERED: ACETAMINOPHEN 325 MG TAB PO ONE (18:30)
[2020-01-04] MEDS ORDERED: ISOVUE-370 76% 100ML VIAL As Ordered ONE (18:32)
[2020-01-04 18:49] LABS: HEMATOCRIT 26.1 % (36.0-47.0); MEAN CORPUSCULAR HEMOGLOBIN 25.5 pg (27.0-33.0); MEAN CORPUSCULAR HGB CONC 30.7 g/dl (32.0-36.5); MEAN CORPUSCULAR VOLUME 83.1 fl (80.0-96.0); RED BLOOD COUNT 3.14 10^6/uL (4.00-5.40); WHITE BLOOD COUNT 12.4 10^3/uL (4.0-10.0)
[2020-01-04 18:56] LABS: ALBUMIN 2.3 GM/DL (3.2-5.2); ALT/SGPT 10 U/L (12-78); BILIRUBIN,DIRECT 0.4 MG/DL (0.0-0.2); BILIRUBIN,TOTAL 1.3 MG/DL (0.2-1.0); CK-MB VALUE MASS < 1.0 NG/ML (<3.6); CPK CREATINE PHOSPHOKINASE 93 U/L (26-192); LIPASE 66 U/L (73-393); MB/CK RELATIVE INDEX 1.08 (< OR =4); TOTAL PROTEIN 7.7 GM/DL (6.4-8.2); TROPONIN I < 0.02 NG/ML (< 0.10)
[2020-01-04 19:09] LABS: INR 1.5; PROTHROMBIN TIME 17.8 SECONDS (11.8-14.0)
[2020-01-04 19:21] LABS: ATYPICAL LYMPH 1 % (0-5); LYMPHOCYTES 6 % (16-44); MONOCYTES 5 % (0-5); NEUTROPHILS 86 % (28-66)
[2020-01-04 19:22] LABS: ANISOCYTOSIS 1+; HYPOCHROMASIA 1+; PLATELET CLUMPS SMALL AMT; PLATELET ESTIMATE DECREASED (NORMAL)
[2020-01-04 19:23] LABS: MICROCYTOSIS 1+
[2020-01-04 20:14] LABS: ABG BASE EXCESS -1.1 (-2.0-2.0); ABG HCO3 19.9 MEQ/L (22.0-26.0); ABG PARTIAL PRESSURE CO2 21.6 mmHg (35.0-45.0); ABG PARTIAL PRESSURE O2 76.7 mmHg (75.0-100.0); ABG STANDARD HCO3 23.5 MEQ/L (22.0-26.0); ABG TOTAL CO2 20.6 MEQ/L (22.0-29.0); ABG pH (ARTERIAL) 7.582 UNITS (7.350-7.450)
[2020-01-04] MEDS ORDERED: PIPERACILLIN/TAZOBACTAM SOD 3.375 GM in D5W MINI-BAG PLUS 50 ML IV ONE (21:15)
--- NOTE | 2020-01-04 21:41 | ECGEPIP ---
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
[2020-01-04] MEDS ORDERED: ACETAMINOPHEN TAB 650MG DOSE (2X325MG) PO PRN (23:30)
[2020-01-05] MEDS ORDERED: POTASSIUM CHLORIDE 10% LIQ 20 MEQ/15 ML UDC PO ONE (00:15)
[2020-01-05] MEDS ORDERED: ONDANSETRON 4MG/2ML VIAL IV PRN (00:15)
[2020-01-05] MEDS ORDERED: VANCOMYCIN HCL 750 MG, VIAL MATE ADAPTER 1 EACH in D5W 250 ML IV SCH (00:30)
[2020-01-05] MEDS ORDERED: VANCOMYCIN HCL 750 MG, VIAL MATE ADAPTER 1 EACH in D5W 250 ML IV ONE ×2 (01:00→02:00)
[2020-01-05 01:40] VITALS: BP 114/75
[2020-01-05] MEDS: NS 1,000 ML IV SCH ×2 (01:58→10:18)
[2020-01-05 03:46] LABS: OSMOLALITY SERUM 275 MOSM/KG (275-295)
[2020-01-05 04:00] VITALS: BP 100/56
[2020-01-05 04:03] LABS: ALBUMIN 2.2 GM/DL (3.2-5.2); ALT/SGPT 11 U/L (12-78); BILIRUBIN,TOTAL 1.3 MG/DL (0.2-1.0); BLOOD UREA NITROGEN 27 MG/DL (7-18); CALCIUM LEVEL 7.8 MG/DL (8.5-10.1); CARBON DIOXIDE LEVEL 24 MEQ/L (21-32); CHLORIDE LEVEL 92 MEQ/L (98-107); CREATININE FOR GFR 0.85 MG/DL (0.55-1.30); FERRITIN 950 NG/ML (8-252); GLOMERULAR FILTRATION RATE > 60.0 (>58); GLUCOSE, FASTING 151 MG/DL (70-100); IRON (FE) 12 UG/DL (50-170); MAGNESIUM LEVEL 2.1 MG/DL (1.8-2.4); PERCENT SATURATION 6.3 % (13.2-45.0); SODIUM LEVEL 128 MEQ/L (136-145); TOTAL IRON BINDING CAPACITY 192 UG/DL (250-450); TOTAL PROTEIN 7.2 GM/DL (6.4-8.2)
[2020-01-05] MEDS: cefTAZidime 2 GM in D5W MINI-BAG PLUS 50 ML IV SCH ×2 (05:15→13:00)
--- NOTE | 2020-01-05 05:20 | PHACANCOPD ---
PHARMACY VANCOMYCIN DOSING Pt Demographics Demographics Patient Age:39 , Weight:61.100 , Gender: female Adjusted Body Weight Date: 01/05/20, Adjusted Body Weight: [58.64] Kg Events Past 24 Hours Events Past 24 Hours: YES: Fever Vancomycin Vancomycin indication: BILAT.ULCERS,SEPSIS,ENDOCARDITIS Vancomycin Target Ranges: 15-20 mcg/ml Vancomycin Load Y/N: Yes Load Dose Date Time Vancomycin Load Dose: 1.5GM Date: 12/25 Time: 2:-3:00 Vancomycin Dose Date: 01/05/20. Current Vancomycin Dose: [1 GM Q8H] Intermittent Dosing?: No Labs Micro Microbiology 01/04/20 Blood Culture, Received Pending 01/04/20 Urine Culture, Received Pending 01/04/20 Blood Culture, Received Pending Creatinine Clearance Date:01/05/20. Creatinine Clearance: [97.9].CALCULATED Assessment and Plan Maintaining Current Dose?: Yes Reason for dose change: Significant event, No Dose Change Pharmacist Note Pharmacist Note Date: 01/05/20. Pharmacist note:39 YOF,NKDA,Hx tricuspid valve endocarditis,Hx iv drug use,bilateral necrotic LE ulcers,sepsis.MRSA PCR pending.Ht:65",Wt:61.5kg(abw=58.6kg).ABX regimen includes Ceftazidime 2 gm IV Q8H and Pharmacy dosed Vancomycin.(trough goal 15-20) Vanco 1.5gm load ,then will begin 1 gram iv q8hour regimen today@10:00. First trough ios scheduled for 01/05@1:00(prior to the 4th dose)-will continue to follow labs and will adjust dose as needed L[facility] Jan 05, 2020 05:20
[2020-01-05 05:57] LABS: BASO % 0.3 % (0.0-1.0); EOS % 0.1 % (0.0-3.0); HEMATOCRIT 24.6 % (36.0-47.0); HEMOGLOBIN 7.7 g/dl (12.0-15.5); LYMPH # 0.8 10^3/uL (1.5-5.0); LYMPH % 5.4 % (24.0-44.0); MEAN CORPUSCULAR HEMOGLOBIN 25.7 pg (27.0-33.0); MEAN CORPUSCULAR HGB CONC 31.3 g/dl (32.0-36.5); MONO # 0.6 10^3/uL (0.0-0.8); MONO % 4.4 % (0.0-5.0); NEUTROPHILS # 11.9 10^3/uL (1.5-8.5); NEUTROPHILS % 83.8 % (36.0-66.0); WHITE BLOOD COUNT 14.2 10^3/uL (4.0-10.0)
[2020-01-05 06:37] LABS: PLATELET COUNT, AUTOMATED 78 10^3/uL (150-450)
[2020-01-05 07:00] VITALS: BP 107/66
[2020-01-05 07:41] LABS: ALBUMIN 2.1 GM/DL (3.2-5.2); ALT/SGPT 12 U/L (12-78); BILIRUBIN,TOTAL 1.5 MG/DL (0.2-1.0); BLOOD UREA NITROGEN 28 MG/DL (7-18); CALCIUM LEVEL 7.7 MG/DL (8.5-10.1); CARBON DIOXIDE LEVEL 22 MEQ/L (21-32); CHLORIDE LEVEL 92 MEQ/L (98-107); CREATININE FOR GFR 1.02 MG/DL (0.55-1.30); GLOMERULAR FILTRATION RATE > 60.0 (>58); GLUCOSE, FASTING 142 MG/DL (70-100); POTASSIUM SERUM 2.8 MEQ/L (3.5-5.1); SODIUM LEVEL 127 MEQ/L (136-145); TOTAL PROTEIN 7.1 GM/DL (6.4-8.2)
[2020-01-05] MEDS: KCL 10MEQ/100ML SWI (KRUN) 10 MEQ in IV 1 EA IV SCH ×6 (08:47→14:04)
[2020-01-05] MEDS ORDERED: DOCUSATE SODIUM 100 MG CAP PO SCH (09:00)
[2020-01-05] MEDS ORDERED: ENOXAPARIN 40MG/0.4ML SYRINGE (J1650 PER 10MG) SC SCH (09:00)
[2020-01-05] MEDS: VANCOMYCIN HCL 1,000 MG, VIAL MATE ADAPTER 1 EACH in D5W 250 ML IV SCH ×2 (09:56→17:03)
[2020-01-05 12:00] VITALS: BP 99/66
[2020-01-05] MEDS ORDERED: PROMETHAZINE INJ 25 MG/ML VIAL (J2550) IV PRN (12:00)
--- NOTE | 2020-01-05 12:42 | IPNPDOC ---
Text Note Date of Service The patient was seen on 01/05/20. NOTE Please see discharge summary. VS,Fishbone, I+O VS, Fishbone, I+O Laboratory Tests 01/04/20 17:30 01/05/20 05:20 Vital Signs Date Time Temp Pulse Resp B/P (MAP) Pulse Ox O2 Delivery O2 Flow Rate FiO2 01/05/20 07:00 98.0 114 20 107/66 (80) 97 Nasal Cannula 2.0 I&O- Last 24 Hours up to 6 AM 01/05/20 06:00 Intake Total 1400 ml Balance 1400 ml RAMU WAGONER MD Jan 05, 2020 09:10
--- NOTE | 2020-01-05 14:25 | DS.PDOC ---
Discharge Summary General Date of Admission Jan 04, 2020 at 15:24 Date of Discharge 01/05/2020 Attending Physician: RAMU WAGONER MD Discharge Summary PROCEDURES PERFORMED DURING STAY: None ADMITTING DIAGNOSES: 1. Sepsis DISCHARGE DIAGNOSES: 1. 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 MRSA pulmonary septic emboli 3. Heroine use disorder 4. Chart noted history of alcohol use disorder COMPLICATIONS/CHIEF COMPLAINT: Bilateral Leg Ulcer. HISTORY OF PRESENT ILLNESS: Ms. Vieyra is a 39yo W who pertinent medical history began in 10/2019 when she was admitted with severe sepsis 2/2 a soft tissue infection that occurred after injury after falling from a tree with involvement of a chainsaw? while trying to make fci for her cats with cuts that were not tended. She was admitted to [facility] in 10/2019 with MRSA bacteremia with evidence of pulmonary septic emboli, loud pansystolic murmur heart throughout precordium and TTE confirmed a large echogenic structure noted on the tricuspid valve measuring 2.4 x 1 cm with associated moderately severe tricuspid regurgitation. Of note, she had necrotic lesions on lower extremities with positive culture for staph aureus and biopsy was done from the right calf and the right foot to rule out other possible etiologies, such as pyoderma gangrenosum and vasculitis from endocarditis. She was ultimately transferred to [facility] per the recommendation of our inhouse apple packing header Dr. Beauchamp where she received further antibiotic treatment without valve surgery and ultimately ended up signing out AMA and sent home on PO bactrim. Of note, she reports that she was declined surgery because she eventually admitted to using heroine and has used since discharge home. HOSPITAL COURSE: She returned to [facility] ED on 03/06 overnight with fever and body aches and was found to be febrile, tachycardic with luis sepsis and started on vanc/ceftaz. On 01/04 Am she was borderline soft BPs and tachycardic to 110s, mildly tachypneic on 2L NC and reporting some back pain c/f seeding. Given the tachycardia and soft BPs and raging systolic murmur with a known history of tricuspid MRSA endocarditis, I ordered a stat TTE for which a reading is pending to compare size from prior and on speaking with the inhouse apple packing header, Dr. Evangelista, he suggested immediate transfer to a facility with cardiothoracic [facility]. Of note, outstanding other issues from Ms. Vieyra at time of transfer including hypokalemia to 2.8 for which we are attempting repletion but may not complete by time of transfer, mild transaminitis with AST 53, ALT wnl and T bili 1.5, lactate of 5.9 for which we have her on normal saline at 150cc/hr, acute on chronic anemia with Hgb 7.7, acute on chronic thrombocytopenia with platelets of 78. DISCHARGE MEDICATIONS: Please see below. ALLERGIES: Please see below. PHYSICAL EXAMINATION ON DISCHARGE: VITAL SIGNS: Please see below. General: mild distress, awake, alert HEENT: NCAT, anicteric, EOMI, MMM Heart: Normal S1, S2, tachycardiac. Holosystolic ejection murmur heard 3/6 at the left upper sternal border and left lower sternal border. Lungs: CTAB with bibasilar crackles Abdomen: Soft, nontender. No hepatosplenomegaly. Extremities: +1 pitting edema bilaterally. Large necrotic ulcer on R calf laterally, deep, black eschar over it, no drainage at this time. Dry wound on left as well Musculoskeletal exam: Moves hips, knees, ankles, shoulders with passive range of motion. Has some point tenderness along the lumbar vertebra. Neuro: AOx3, moving all extremities, CN2-12 intact Psych: appears anxious but is cooperative LABORATORY DATA: Please see below. IMAGING: CXR: Official read pending. But showed no effusions or opacities with some bilateral central nodules? LE doppler US: read pending (ordered at admission overnight) The last documented Echocardiogram at [facility] - read by Dr. Beauchamp, transthoracic, on 11/08/2019 showed a normal left ventricular size, thickness and ejection fraction 60-65%. Normal left atrium, right atrium, and right ventricle appeared to be mildly enlarged. Normal aortic and mitral valve. There is a large echogenic structure noted on the tricuspid valve measuring 2.4 x 1 cm. This is associated with moderately severe tricuspid regurgitation. PROGNOSIS: Fair ACTIVITY: As tolerated DIET: Regular as tolerated DISCHARGE PLAN: Transfer to [facility] DISPOSITION: Transfer to [facility] DISCHARGE INSTRUCTIONS: 1. Transfer to [facility] ITEMS TO FOLLOWUP ON ON OUTPATIENT: 1. Transfer to [facility] for MRSA endocarditis and sepsis DISCHARGE CONDITION: Stable TIME SPENT ON DISCHARGE: 56 minutes. Vital Signs/I&Os Vital Signs Date Time Temp Pulse Resp B/P (MAP) Pulse Ox O2 Delivery O2 Flow Rate FiO2 01/05/20 07:00 98.0 114 20 107/66 (80) 97 Nasal Cannula 2.0 I&O- Last 24 Hours up to 6 AM 01/05/20 05:59 Intake Total 1200 ml Balance 1200 ml Laboratory Data Labs 24H Laboratory Tests 2 01/04/20 17:15: Urine Color EMILY, Urine Appearance CLOUDYH, Urine pH 6.0, Urine Specific [place] 1.025, Urine Protein 2+H, Urine Glucose (UA) NEGATIVE, Urine Ketones NEGATIVE, Urine Blood 1+H, Urine Nitrite NEGATIVE, Urine Bilirubin NEGATIVE, Urine Urobilinogen 4.0H, Urine Leukocyte Esterase 1+H, Urine WBC (Auto) 19H, Urine RBC (Auto) 2, Urine Hyaline Casts (Auto) 1, Urine Bacteria (Auto) NEGATIVE, Urine Squamous Epithelial Cells 3, Urine Amorphous Sediment SMALLH, Urine Mucus (Auto) SMALL, Urine Sperm (Auto) , Total Bilirubin 1.3H, Direct Bilirubin 0.4H, Aspartate Amino Transf (AST/SGOT) 55H, Alanine Aminotransferase (ALT/SGPT) 10L, Alkaline Phosphatase 104, Total Creatine Kinase 93, Creatine Kinase MB < 1.0, Creatine Kinase MB Relative Index 1.08, Troponin I < 0.02, Total Protein 7.7, Albumin 2.3L, Albumin/Globulin Ratio 0.4L, Lipase 66L 01/04/20 17:30: Neutrophils (%) (Auto) , Nucleated Red Blood Cells % (auto) 0.0, Neutrophils 86H, Band Neutrophils 2, Lymphocytes (Manual) 6L, Monocytes (Manual) 5, Atypical Lymphocytes 1, Hypochromasia 1+, Anisocytosis 1+, Microcytosis 1+, Platelet Estimate DECREASED, Clumped Platelets SMALL AMT 01/04/20 17:36: Prothrombin Time 17.8H, Prothromb Time International Ratio 1.50 01/04/20 18:05: POC Glucose (Misc Panel) 104, POC Sodium (Misc Panel) 128L, POC Potassium (Misc Panel) 3.2L, POC Chloride (Misc Panel) 88L, POC Total CO2 (Misc Panel) 25.0, POC Blood Urea Nitrogen (Misc Panel 27H, POC Ionized Calcium (Misc Panel) 4.3L, POC Creatinine (Misc Panel) 0.7, POC Hematocrit (Misc Panel) 27.0L 01/04/20 18:07: POC Beta HCG, Quantitative < 5.0 01/04/20 20:07: Blood Gas Bicarbonate Standard 23.5, Arterial Blood pH 7.582H, Arterial Blood Partial Pressure CO2 21.6L, Arterial Blood Partial Pressure O2 76.7, Arterial Blood Total CO2 20.6L, Arterial Blood HCO3 19.9L, Arterial Blood Base Excess - 1.1, Arterial Blood Oxygen Saturation 96.0 01/05/20 04:03: Bedside Glucose (Misc Panel) 157H 01/05/20 05:20: Immature Granulocyte % (Auto) 6.0H, Neutrophils (%) (Auto) 83.8H, Lymphocytes (%) (Auto) 5.4L, Monocytes (%) (Auto) 4.4, Eosinophils (%) (Auto) 0.1, Basophils (%) (Auto) 0.3, Neutrophils # (Auto) 11.9H, Lymphocytes # (Auto) 0.8L, Monocytes # (Auto) 0.6, Eosinophils # (Auto) 0.0, Basophils # (Auto) 0.0, Nucleated Red Blood Cells % (auto) 0.0, Immature Platelet Fraction 16.0H, Anion Gap 13, Glomerular Filtration Rate > 60.0, Calcium Level 7.7L, Total Bilirubin 1.5H, Aspartate Amino Transf (AST/SGOT) 53H, Alanine Aminotransferase (ALT/SGPT) 12, Alkaline Phosphatase 130H, Total Protein 7.1, Albumin 2.1L, Albumin/Globulin Ratio 0.4L 01/05/20 05:55: Methicillin-Resist S.aureus DNA PCR DETECTEDA 01/05/20 07:36: Lactic Acid Followup at 4 Hours 5.9*H 01/05/20 09:30: Coronavirus (COVID-19)(PCR) NEGATIVE CBC/BMP Laboratory Tests 01/04/20 17:30 01/05/20 05:20 FSBS Laboratory Tests Test 01/05/20 04:03 Range/Units Bedside Glucose (Misc Panel) 157 70-105 MG/DL Microbiology Microbiology 01/04/20 Blood Culture - Preliminary, Resulted 01/04/20 Urine Culture, Received Pending 01/04/20 Blood Culture - Preliminary, Resulted Discharge Medications Scheduled PRN Albuterol Sulfate (Ventolin Hfa) 18 Gm Hfa.aer.ad, 2 PUFF INH Q6H PRN for SHORTNESS OF BREATH, (Reported) Allergies Coded Allergies: No Known Allergies (Unverified , 11/07/19) RAMU WAGONER MD Jan 05, 2020 12:38
[2020-01-05 15:34] VITALS: BP 107/70
--- NOTE | 2020-01-06 07:07 | HPE ---
DATE OF ADMISSION: 01/04/2020 CHIEF COMPLAINT: Lower extremity sores and edema. This is a 39-year-old female with history in October of endocarditis of the tricuspid valve, acute septic pulmonary embolism without acute cor pulmonale, MRSA bacteremia, skin ulcerations in bilateral lower extremities, and a history of intravenous (IV) drug use who had been a patient in October and was subsequently transferred to [facility] for a higher level of care and cardiac evaluation. She was seen by Dr. Graff and was scheduled to have tricuspid valve replacement and the patient was found with an IV syringe and positive opiates in her system. The surgery was cancelled and the cardiothoracic signed the case back over to medical where she was further treated for her MRSA bacteremia and she ultimately signed out against medical advice (AMA). She was given a prescription for Bactrim, which she states she took and finished. She states she was feeling fairly well until the last 3 days when she developed a fever and bilateral lower extremity edema and the ulcers on her legs were given her discomfort. She came to the emergency room. Upon arrival, temperature was 101.4, pulse was 127, respiratory rate was 28, blood pressure was 116/71, oxygen saturation was 93% on room air. Laboratory studies were done. Glucose was 104, sodium was 128, potassium 3.2, chloride 88, total CO2 was 25. Blood urea nitrogen (BUN) was 28, creatinine was 0.7. Ionized calcium was 4.3. Total bilirubin was 1.3, direct bilirubin was 0.4. Aspartate aminotransferase (AST) was slightly elevated at 55, alanine transaminase (ALT) was low at 10. Troponin was less than 0.02. Albumin was low at 2.3. Lipase was low at 66. Beta hCG was 5.0. Prothrombin time (PT) was 17.8, international normalized ratio (INR) was 1.5. Urine was cloudy. Urine protein was 2+, urine blood was 1+. Leukocyte esterase was 1+, urobilinogen was 4.0, white blood cell (WBC) was 19. White count was 12.4, hemoglobin was 8, hematocrit 26.1, platelet count was invalid due to platelet clotting. Unable to access IV. Provider put a jugular venous access. Vascular ultrasound was done; showed no deep venous thromboses (DVTs). Electrocardiogram (EKG) was done; showed sinus tachycardia, rate of 118, moderate intraventricular conduction delay. Assessment was done. Patient received Zosyn in the emergency room (ER). Patient will be admitted to progressive care unit (PCU) on telemetry for bilateral lower extremity edema, stasis ulcers, hypokalemia, hyponatremia, recent history endocarditis, will get an updated echo, recent history of infected pulmonary emboli, unable with the jugular to do a clear CTA, will consider V/Q scan. Will get a cardiology consult and updated echo, a wound consult and infectious disease (ID) consult. Consider mental health consult for recommendations for drug with heroin withdrawal. Patient will be admitted to the PCU unit on telemetry. ALLERGIES: NO KNOWN ALLERGIES. SOCIAL HISTORY: She lives with her 15-year-old daughter, but who is currently spending the summer with her father in [place]. She is a known heroin addict and is currently on a waiting list she states for Suboxone therapy for withdrawal to [facility] outpatient. She verbally confirmed her code status as FULL CODE. She smokes cigarettes, approximately a pack a day. FAMILY HISTORY: Mother has hypertension. One child, 15-year-old daughter who is healthy. PAST MEDICAL HISTORY: Asthma and as previously noted in October endocarditis to the tricuspid valve, acute septic pulmonary embolism without acute cor pulmonale, MRSA bacteremia, anemia requiring transfusions, history of illicit drug use, MRSA nasal colonization. PAST SURGICAL HISTORY: Bilateral bunionectomies. HOME MEDICATIONS: None. REVIEW OF SYSTEMS: HEENT: No blurred or double vision. She has had fever and chills. No tinnitus. No hoarseness. No difficulty swallowing. She has had some lightheadedness. No vertigo. Breasts: No masses. Cardiovascular: No complaints of chest pain, shortness of breath, palpitations. She has lower extremity edema. Respiratory: No chronic cough. No sputum production. Denies hemoptysis. Occasional wheeze. Denies orthopnea. Gastrointestinal (GI): Decreased appetite, occasional nausea. No current vomiting, diarrhea, hematochezia, melena, or rectal bleeding. Genitourinary (): No hematuria, dysuria, or urgency. Musculoskeletal: Has generalized weakness. Endocrine: No history of hypothyroidism. No polyuria, polydipsia or polyphagia. Hematological: Has a history of anemia. Has required transfusions in the past. Neurological: No history of seizures. No paraesthesias or paralysis. Psychological: No current anxiety, depression or suicidal ideation. PHYSICAL EXAMINATION: 39-year-old, ill-appearing female, in no acute distress. Blood pressure is 94/60, pulse 98, respirations 18, temperature 97.6. Patient alert and oriented times three. Pupils equal and reactive to light. Extraocular movements (EOMS) intact. Buccal mucosa slightly dry. Tongue midline. Neck supple, without lymphadenopathy. No thyromegaly. No goiter. Jugular venous line is in the right external jugular. Chest has decreased breath sounds. No wheeze or retraction. Heart is regular.gr3-4/6 murmur Abdomen is benign. Bowel sounds positive. /rectal not done. Extremities show edema full both leg. Both pedal pulses are palpable. Edema in both lower legs, pedal edema, ankle edema, pretibial edema 1-2+. Each lower leg has a very shallow, approximately 1 inch long, 1 inch wide, and 1/4 inch deep, dried ulcer, painful to touch. No current drainage. IMPRESSION/PLAN: Patient will be admitted. Will require to inpatient for bilateral lower extremity ulcers, hypokalemia, hyponatremia, will give IV normal saline, recheck comprehensive metabolic panel (CMP), monitor hemoglobin/hematocrit (H/H), get an updated echo to review the status of the endocarditis and the tricuspid valve. Infectious disease consult. Followup on blood cultures, urine cultures. Cardiology consult. Updated echo. Drug withdrawal, monitor, treat as needed. Keep hydrated. DVT prophylaxis with Lovenox. MTDD
--- NOTE | 2020-01-06 07:52 | REP ---
AP PORTABLE CHEST: 01/04/2020. CLINICAL HISTORY: Dyspnea. Recent cavitary lesions in the chest. COMPARISON: CTA 11/07/2019, portable chest 11/08/2019. FINDINGS: The right IJ line has been removed since 11/08/2019. The lungs are well inflated. There are fewer peripheral nodular infiltrates than on the previous study. Appear to be a few more on the right than left currently. There is no gross effusion. Heart is mildly prominent with some left ventricular enlargement. There is some venous hypertension without luis edema. No widening of the mediastinum. Hilar fullness again seen corresponding to adenopathy on the CT. IMPRESSION: 1. Improvement in the chest with far fewer nodular infiltrates than on the previous study. No gross effusion. 2. Cardiomegaly with left atrial and ventricular enlargement and some venous hypertension. No luis edema. Hilar fullness bilaterally consistent with adenopathy as seen on CT in October. No other significant interval change. Electronically Signed by Amado Meza MD 01/06/2020 08:44 A
--- NOTE | 2020-01-07 07:00 | ECHO ---
DATE OF PROCEDURE: 01/05/2020 DATE OF : 1980 AGE: 39 INPATIENT: PCU - Room 3212 GENDER: Female HEIGHT: 65 inches WEIGHT: 134 pounds BODY SURFACE AREA: 1.67 m2 REFERRING PHYSICIAN: Dr. Ball INDICATIONS: Sepsis. History of endocarditis with vegetation documented October 2019. MEASUREMENTS 2-D Measurements: RV: 4.8 cm LV: 3.7 cm Septum: 1.0 cm Posterior wall: 1.0 cm Aortic root: 2.7 cm LA: 3.3 cm LVEF: 65% Doppler Measurements: AV: 1.2 m/s LVOT: 0.9 m/s MV - E 70 A 60 EA ratio 1.2 E prime medial: 9.3 A prime medial: 8 E prime lateral: 12.9 PV: 0.92 m/s Pulmonary artery acceleration time: 92 ms RVSP: 51 mmHg IVC: 2.6 cm COMMENTS: Sinus tachycardia without intraventricular conduction disturbance. M-mode and two-dimensional echocardiography was performed with pulsed, continuous wave, color flow and tissue Doppler studies. Normal left ventricular size and wall thickness with septal flattening consistent with right ventricular pressure overload, yet preserved global resting left ventricular systolic function. Normal left atrial size and Doppler assessment of LV diastolic function and estimated mean left atrial pressure. At least moderately dilated right heart chambers with right ventricular free wall hypokinesis and Doppler evidence of at least moderately severe pulmonary hypertension. Prominently dilated inferior vena cava with absent respiratory collapse in keeping with an elevated central venous pressure. Normal aortic dimensions. Normal appearing and functioning aortic valve. Normal appearing and functioning mitral valve. The tricuspid valve had an obvious large vegetation measuring 3.4 cm x 1.1 cm, believed to be attached to the anterior cusp. Associated gross tricuspid insufficiency. No separate intracardiac mass or pericardial effusion.
--- NOTE | 2020-01-07 09:11 | REP ---
Bilateral lower extremity Duplex Doppler venous ultrasound: Real time compression and duplex Doppler interrogation of the bilateral lower extremity deep venous system is performed. Bilaterally, the common femoral, superficial femoral and popliteal veins are fully compressible with transducer pressure and demonstrate normal spontaneous and phasic flow, without evidence of deep venous thrombosis. Impression: No evidence of deep venous thrombosis of the bilateral lower extremity femoral popliteal venous system. Electronically Signed by Sadiq Singer MD 01/07/2020 09:02 A
[2020-01-07 12:42] LABS: CORTISOL AM 57.3 UG/DL (4.3-22.4)
[2020-01-07 13:29] LABS: HEPATITIS B SURFACE ANTIGEN NEGATIVE (NEGATIVE)
[2020-01-07 13:55] LABS: HEPATITIS C VIRUS ABY INDEX 0.2 INDEX (<0.8)
[2020-01-07 13:56] LABS: HEPATITIS B CORE ANTIBODY IGM NEGATIVE (NEGATIVE)
[2020-01-07 13:58] LABS: HEPATITIS A ANTIBODY IGM NEGATIVE (NEGATIVE)
== END 2020-01-05 17:58 | disposition short-term general hospital (02) ==
LOC: M ED 15:23 → M ED INP 15:24 → ENRESERV 01-05 00:25 → M PCU 01-05 01:36
PROVIDERS: ADMIT Internal Medicine; ATTEND Internal Medicine
DX: I38 Endocarditis, valve unspecified (principal); I26.90 Septic pulmonary embolism without acute cor pulmonale; F11.20 Opioid dependence, uncomplicated; F10.10 Alcohol abuse, uncomplicated; R50.9 Fever, unspecified; E87.1 Hypo-osmolality and hyponatremia; E87.6 Hypokalemia; F17.218 Nicotine dependence, cigarettes, with other nicotine-induced disorders; J45.909 Unspecified asthma, uncomplicated
CPT/HCPCS: 36415; 36600; 71045; 80047; 80053; 80076; 80202; 81001; 82533; 82550; 82553; 82728; 82803; 83550; 83605; 83690; 83735; 83930; 84443; 84702; 85025; 85049; 85055; 85610; 86705; 86709; 86803; 86850; 86900; 86901; 86920; 87040; 87077; 87086; 87186; 87340; 87641; 93005; 93306; 93970; 96365; 96366; 96375; 99285; J0713; J1940; J2405; J2543; J3370; U0002

== ENCOUNTER 2020-02-14 09:22 | Observation (INO) | payer MEDICAID, OTHER ==
[2020-02-14] MEDS ORDERED: NS 1,000 ML IV SCH ×2 (09:38→15:15)
[2020-02-14 09:45] VITALS: BP 128/84
[2020-02-14] MEDS ORDERED: LASI20TA3 PO (10:18)
[2020-02-14 10:40] LABS: VENOUS BASE EXCESS 2.2 (-2.0-2.0); VENOUS HCO3 27.3 MEQ/L (23.0-27.0); VENOUS PARTIAL PRESSURE CO2 44.6 mmHg (38.0-50.0); VENOUS PARTIAL PRESSURE O2 41.8 mmHg (30.0-50.0); VENOUS PH 7.404 UNITS (7.330-7.430); VENOUS TOTAL CO2 28.6 MEQ/L (24.0-28.0)
[2020-02-14 10:41] LABS: VENOUS O2 SATURATION 67.2 % (60.0-80.0); VENOUS STANDARD HCO3 25.9 MEQ/L
[2020-02-14 11:01] LABS: BASO % 0.4 % (0.0-1.0); EOS % 0.3 % (0.0-3.0); HEMATOCRIT 26.2 % (36.0-47.0); HEMOGLOBIN 8.2 g/dl (12.0-15.5); LYMPH # 1.5 10^3/uL (1.5-5.0); MEAN CORPUSCULAR HEMOGLOBIN 27.2 pg (27.0-33.0); MEAN CORPUSCULAR HGB CONC 31.3 g/dl (32.0-36.5); MONO # 0.7 10^3/uL (0.0-0.8); MONO % 7.3 % (0.0-5.0); NEUTROPHILS # 6.7 10^3/uL (1.5-8.5); NEUTROPHILS % 74.4 % (36.0-66.0); PLATELET COUNT, AUTOMATED 141 10^3/uL (150-450); RED BLOOD COUNT 3.01 10^6/uL (4.00-5.40); WHITE BLOOD COUNT 9.1 10^3/uL (4.0-10.0)
[2020-02-14 11:26] LABS: ACETAMINOPHEN LEVEL < 2.0 UG/ML (10.0-30.0); ALBUMIN 2.7 GM/DL (3.2-5.2); ALT/SGPT 10 U/L (12-78); BILIRUBIN,DIRECT 0.5 MG/DL (0.0-0.2); BILIRUBIN,TOTAL 1.1 MG/DL (0.2-1.0); BLOOD UREA NITROGEN 15 MG/DL (7-18); CALCIUM LEVEL 8.5 MG/DL (8.5-10.1); CARBON DIOXIDE LEVEL 31 MEQ/L (21-32); CHLORIDE LEVEL 91 MEQ/L (98-107); CK-MB VALUE MASS 2.1 NG/ML (<3.6); CPK CREATINE PHOSPHOKINASE 197 U/L (26-192); CREATININE FOR GFR 1.48 MG/DL (0.55-1.30); ETHYL ALCOHOL (ETHANOL) < 0.003 % (0.000-0.010); GLOMERULAR FILTRATION RATE 41.4 (>58); GLUCOSE, FASTING 81 MG/DL (70-100); MB/CK RELATIVE INDEX 1.07 (< OR =4); POTASSIUM SERUM 2.3 MEQ/L (3.5-5.1); SALICYLATE LEVEL < 1.7 MG/DL (5.0-30.0); SODIUM LEVEL 134 MEQ/L (136-145); TOTAL PROTEIN 7.9 GM/DL (6.4-8.2); TROPONIN I 0.02 NG/ML (< 0.10)
[2020-02-14] MEDS ORDERED: POTASSIUM CHLORIDE 10 MEQ SR TABLET PO ONE (12:00)
[2020-02-14] MEDS ORDERED: NS 500 ML IV ONE (12:15)
[2020-02-14] MEDS ORDERED: KCL 10MEQ/100ML SWI (KRUN) 10 MEQ in IV 1 EA IV ONE (14:00)
[2020-02-14] MEDS ORDERED: NS 1,000 ML IV ONE (15:15)
[2020-02-14] MEDS ORDERED: ALBUTEROL 90 MCG/ACT 8GM HFA INHALER INH PRN (15:15)
[2020-02-15] MEDS ORDERED: ENOXAPARIN 40MG/0.4ML SYRINGE (J1650 PER 10MG) SC SCH (09:00)
--- NOTE | 2020-03-07 16:17 | ECGEPIP ---
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
--- NOTE | 2020-04-04 16:16 | ECHO ---
DATE OF PROCEDURE: 02/14/2020 Gender: Female Height: 165 cm Weight: 65 kg REFERRING PHYSICIAN: Marion Bang MD INDICATION: Infective endocarditis. MEASUREMENTS: 2D Measurements: Left ventricle diastole 4.4 cm Left ventricle septum 1.6 cm Left ventricle posterior wall 0.94 cm Left atrium 3.4 cm Aortic root 2.8 cm Left atrial volume index 17 Inferior vena cava 2.5 cm Doppler Measurements: No aortic regurgitation No aortic stenosis No mitral regurgitation No mitral stenosis Severe tricuspid regurgitation No pulmonic regurgitation Aortic valve velocity 151 cm/s LVOT velocity 160 cm/s Mitral E velocity 108 cm/s Mitral A velocity 91.3 cm/s Mitral deceleration time 100 msec ? Estimated right ventricle systolic pressure at least 42 mmHg Estimated right atrial pressure of at least 20 mmHg. DESCRIPTION: Rhythm was sinus tachycardia. The image quality was good. No pericardial effusion. CONCLUSIONS: * Multiple (at least two) vegetations involving the tricuspid valve. The largest vegetation appeared to be attached to the anterolateral tricuspid leaflet and measured 2.9 cm in length x 0.9 cm in maximal width. A second much smaller vegetation appeared to be on the anterolateral leaflet as well. There was reduced motion of the septal tricuspid leaflet (restriction). Severe tricuspid regurgitation was present with systolic flow reversal in the hepatic veins. * Mildly dilated right ventricle with normal RV systolic function. At least a mildly dilated right atrium. * Normal left ventricle internal dimensions and wall thickness. Normal regional LV wall motion and wall thickening. Normal LV systolic function. LVEF 65% to 70% by visual estimate. Normal LV diastolic function. Partially flattening of the interventricular septum ensuring diastole and keeping with volume overload of the right ventricle. * Suggestive of at least moderate elevation of estimated right ventricle systolic pressure. Inferior vena cava plethora suggestive of elevated central venous pressure of at least 20 mmHg. * Right pleural effusion. * No pericardial effusion. * Otherwise normal appearing echocardiogram Doppler findings. Results of this study were relayed by telephone to Dr. Marion Bass. [facility]OSPITALWilbur
== END 2020-02-14 16:15 | disposition left against medical advice (07) ==
LOC: EDBD 09:22 → M ED 09:22 → M ED INP 09:23
PROVIDERS: ADMIT Internal Medicine; ATTEND Internal Medicine
DX: I33.0 Acute and subacute infective endocarditis (principal); I34.0 Nonrheumatic mitral (valve) insufficiency; E87.6 Hypokalemia; E87.2 Acidosis; J90 Pleural effusion, not elsewhere classified; F11.90 Opioid use, unspecified, uncomplicated; J45.909 Unspecified asthma, uncomplicated
CPT/HCPCS: 36415; 71045; 80048; 80076; 82550; 82553; 82803; 83605; 83735; 84443; 85025; 87040; 93005; 93041; 93306; 96361; 96365; 99285; G0480